=== PATIENT | female | born 1975 | race African-American/Black ===

== ENCOUNTER 2016-11-02 16:50 | Emergency (ER) | payer OTHER ==
[~2016-11-02] VITALS: Ht 165.1 cm; Wt 132.4 kg
--- NOTE | ~2016-11-02 | EKG ---
[place] [address] [facility] [place] [address] ELECTROCARDIOGRAM REPORT Name: GARRETT LARKIN ANABEL Room #: REG [facility]ENTERLyndsayLyndsay#: [id number] Admission: 11/02/16 Attend Phys: Discharge: Date of : 77 Report #: [id number] THIS REPORT FOR: //name// [facility] ED Test Date: 2016-11-02 Test Time: 16:54:23 Pat Name: GARRETT LARKIN Department: Room: Gender: F Financial Auditor: Yayo MENENDEZ : 1975 Requested By: Adan Arechiga Order Number: [id number] MD: Sonido Brown Measurements Intervals [place] Rate: 94 P: 35 OR: 146 QRS: 8 QRSD: 101 T: 14 QT: 373 QTc: 467 Interpretive Statements Sinus rhythm Borderline T wave abnormalities Compared to ECG 08/23/2015 23:12:50 T-wave abnormality now present Sinus tachycardia no longer present ST (T wave) deviation no longer present Electronically Signed On 11-02-2016 19:31:57 CDT by Sonido Brown [email or web address] <ELECTRONICALLY SIGNED> By: Sonido Brown MD 11/02/161930 1654 165 Sonido Brown MD /EPI
[~2016-11-02 16:50] MED LIST: AMLODIPINE BESYL5 M1 PO; AMOXICILLIN 50500 M1 PO; BENTYL10 MG; CIPROFLOXACIN500 M1 PO; CLEOCIN HCL300 MG PO; DIFLUCAN150 MG PO; DILAUDID 4 MG TA4 M1 PO; DILAUDID2 M1 PO; DOXYCYCLINE 10100 MG PO; FLAGYL500 MG PO; FOLIC ACID 1 MG1 MG PO; HYCET 7.5 MG-3473 ML PO; KEFLEX500 MG PO; LEXAPRO 10 MG T10 M2 PO; MULTIVITAMINS1 EAC7 PO; NORCO 5-325 TA1 EACH PO; NORVASC 2.5 MG2.5 M1 PO; ONDANSETRON HCL4 M2 PO; OXYCONTIN CR 2020 MG; PENICILLIN V P500 MG PO; PERCOCET 10-321 EACH; PREVACID 24HR15 MG; PROMETHAZINE12.5 M1 PO; PROZAC 20 MG20 MG PO; RANITIDINE 150150 M1 PO; TESSALON200 MG PO; ULTRACET TABLE1 EACH PO; XANAX 0.5 MG0.5 M1; ZANTAC 150MG T150 M1; ZANTAC 150MG T150 MG PO; ZOFRAN ODT4 MG PO; ZOFRAN4 MG PO
[2016-11-02 19:04] LABS: HEMATOCRIT 33.4 % (37.0-47.0); HEMOGLOBIN 11.6 gm/dL (12.0-15.0); MCH 28.8 pg (26.0-34.0); MCHC 34.7 g/dL (28.0-37.0); MCV 83.2 fL (80.0-100.0); RBC 4.02 mil/uL (4.20-5.00); RDW 16.8 % (10.5-14.5)
[2016-11-02 19:05] LABS: MANUAL DIFF YES
[2016-11-02 19:12] LABS: ANION GAP 8 mmol/L (7-16); BUN 10 mg/dL (7-18); CALCIUM 8.8 mg/dL (8.5-10.1); CHLORIDE 103 mmol/L (98-107); CO2 26 mmol/L (21-32); CREATININE 0.8 mg/dL (0.6-1.0); GLUCOSE 109 mg/dL (74-106); POTASSIUM 3.8 mmol/L (3.5-5.1); SODIUM 137 mmol/L (136-145)
[2016-11-02] MEDS ORDERED: LATUDA40 MG PO (19:12)
[2016-11-02] MEDS ORDERED: HYDROCHLOROTH12.5 M1 PO (19:12)
[2016-11-02 19:22] LABS: ALBUMIN 3.8 g/dL (3.4-5.0); ALKALINE PHOSPHATASE 142 U/L (46-116); MAGNESIUM 1.8 mg/dL (1.8-2.4); SGOT 31 U/L (15-37); SGPT 30 U/L (30-65); TOTAL PROTEIN 7.7 g/dL (6.4-8.2); TROPONIN-I < 0.04 ng/mL (<0.04-0.07)
[2016-11-02 19:50] LABS: ABSOLUTE NEUTROPHILS 9.4 thou/uL (1.4-8.2); TOTAL CELL COUNT 100
[2016-11-02 19:51] LABS: ANISOCYTOSIS 1+; TARGET CELLS 2+
[2016-11-02] MEDS ORDERED: PROAIR HFA8.5 GM INH (20:08)
[2016-11-02] MEDS ORDERED: TESSALON PERLE100 MG PO (20:08)
[2016-11-02] MEDS ORDERED: NORCO 5-325 TA1 EACH PO (20:08)
[2016-11-02 20:09] LABS: ABSOLUTE RETIC COUNT 0.1342 10^6/uL; OBSERVED RETIC COUNT 3.4 % (0.6-2.6)
[2016-11-02 20:37] VITALS: BP 144/85
[2016-11-02 20:48] LABS: PLATELET COUNT 302 thou/uL (150-400); PLATELET ESTIMATE NORMAL
== END 2016-11-02 20:39 | disposition home or self-care (01) ==
LOC: ER 16:50
PROVIDERS: Emergency Medicine
DX: J20.8 Acute bronchitis due to other specified organisms (principal); D57.00 Hb-SS disease with crisis, unspecified; I10 Essential (primary) hypertension; F17.210 Nicotine dependence, cigarettes, uncomplicated; Z90.89 Acquired absence of other organs; Z88.6 Allergy status to analgesic agent; Z88.8 Allergy status to other drugs, medicaments and biological substances

== ENCOUNTER 2016-12-11 13:47 | Emergency (ER) | payer OTHER ==
[~2016-12-11] VITALS: Ht 165.1 cm; Wt 131.5 kg
--- NOTE | ~2016-12-11 | EKG ---
[place] [address] [facility] [place] [address] ELECTROCARDIOGRAM REPORT Name: GARRETT LARKIN Room #: DEP [facility]#: [id number] Admission: 12/11/16 Attend Phys: Discharge: 12/11/16 Date of : 77 Report #: [id number] THIS REPORT FOR: //name// [facility] ED Test Date: 2016-12-11 Test Time: 13:52:43 Pat Name: GARRETT LARKIN Department: Room: Gender: F Mold Dumper: Gavin MONTERROSO : 1975 Requested By: Carmela Pressley Order Number: [id number] MD: Sonido Brown Measurements Intervals [place] Rate: 84 P: 31 [place]: 150 QRS: 15 QRSD: 104 T: 2 QT: 384 QTc: 454 Interpretive Statements Sinus rhythm Borderline T wave abnormalities Compared to ECG 11/02/2016 16:54:23 No significant changes Electronically Signed On 12-11-2016 22:03:40 CDT by Sonido Brown [email or web address] <ELECTRONICALLY SIGNED> By: Sonido Brown MD 12/11/16 2203 1352 1352 Sonido Brown MD /SYDNI
[~2016-12-11 13:47] MED LIST changes: +HYDROCHLOROTH12.5 M1 PO; +LATUDA40 MG PO; +PROAIR HFA8.5 GM INH; +TESSALON PERLE100 MG PO
[2016-12-11 14:45] VITALS: BP 136/84
[2016-12-11 14:54] LABS: ABSOLUTE NEUTROPHILS 7.6 thou/uL (1.4-8.2); BASOPHILS 0.3 % (0.0-2.0); EOSINOPHILS 1.8 % (0.0-3.0); HEMATOCRIT 31.7 % (37.0-47.0); HEMOGLOBIN 11.4 gm/dL (12.0-15.0); LYMPHOCYTES 25.9 % (24.0-44.0); MANUAL DIFF NO; MCH 29.5 pg (26.0-34.0); MCHC 35.9 g/dL (28.0-37.0); MCV 82.2 fL (80.0-100.0); PLATELET COUNT 359 thou/uL (150-400); RBC 3.85 mil/uL (4.20-5.00); RDW 17.2 % (10.5-14.5); WBC 12.1 thou/uL (4.0-11.0)
[2016-12-11 15:11] LABS: ANION GAP 6 mmol/L (7-16); BUN 5 mg/dL (7-18); CALCIUM 8.9 mg/dL (8.5-10.1); CHLORIDE 107 mmol/L (98-107); CO2 28 mmol/L (21-32); CREATININE 0.7 mg/dL (0.6-1.0); GLUCOSE 96 mg/dL (74-106); POTASSIUM 3.7 mmol/L (3.5-5.1); SODIUM 141 mmol/L (136-145); TROPONIN-I < 0.04 ng/mL (<0.04-0.07)
[2016-12-11] MEDS ORDERED: NORCO 5-325 TA1 EACH PO (15:14)
== END 2016-12-11 15:41 | disposition home or self-care (01) ==
LOC: ER 13:47
PROVIDERS: Emergency Medicine
DX: R07.89 Other chest pain (principal); D57.1 Sickle-cell disease without crisis; I10 Essential (primary) hypertension; Z98.890 Other specified postprocedural states; Z88.8 Allergy status to other drugs, medicaments and biological substances; Z88.6 Allergy status to analgesic agent; F17.210 Nicotine dependence, cigarettes, uncomplicated; F15.10 Other stimulant abuse, uncomplicated

== ENCOUNTER 2016-12-19 06:28 | Emergency (ER) | payer OTHER ==
[~2016-12-19] VITALS: Ht 165.1 cm; Wt 131.5 kg
[2016-12-19 06:34] VITALS: BP 134/92
[2016-12-19] MEDS ORDERED: HYDROCODONE-ACE15 ML PO (07:03)
== END 2016-12-19 07:03 | disposition home or self-care (01) ==
LOC: ER 06:28
DX: J02.8 Acute pharyngitis due to other specified organisms (principal); H92.02 Otalgia, left ear; I10 Essential (primary) hypertension; D57.1 Sickle-cell disease without crisis; F17.210 Nicotine dependence, cigarettes, uncomplicated; F15.10 Other stimulant abuse, uncomplicated; Z98.890 Other specified postprocedural states; Z88.6 Allergy status to analgesic agent

== ENCOUNTER 2017-04-07 21:38 | Emergency (ER) | payer OTHER ==
[~2017-04-07] VITALS: Ht 165.1 cm; Wt 131.5 kg
--- NOTE | ~2017-04-07 | EKG ---
[place] [address] [place] [address] ELECTROCARDIOGRAM REPORT Name: GARRETT LARKIN ANABEL Room #: REG [facility]Lyn[facility]ay#: [id number] Admission: 04/07/17 Attend Phys: Discharge: Date of : 77 Report #: [id number] THIS REPORT FOR: //name// [facility] ED Test Date: 2017-04-07 Test Time: 22:54:38 Pat Name: GARRETT LARKIN Department: Room: Gender: F Panel Laminator: NE[place] : 1975 Requested By: Gage Bach Order Number: [id number] MD: Sonido Brown Measurements Intervals [place] Rate: 74 P: 31 [place]: 152 QRS: 13 QRSD: 99 T: 11 QT: 398 QTc: 442 Interpretive Statements Sinus rhythm RSR' in V1 or V2, probably normal variant Compared to ECG 12/11/2016 13:52:43 RSR' in V1 or V2 now present T-wave abnormality no longer present Electronically Signed On 04-07-2017 23:35:24 CDT by Sonido Brown [email or web address] <ELECTRONICALLY SIGNED> By: Sonido Brown MD 04/07/17 2335 2254 2254 Sonido Brown MD /EPI
[~2017-04-07 21:38] MED LIST changes: +HYDROCODONE-ACE15 ML PO
[2017-04-07 22:21] LABS: ABSOLUTE NEUTROPHILS 9.5 thou/uL (1.4-8.2); BASOPHILS 0.8 % (0.0-2.0); EOSINOPHILS 1.1 % (0.0-3.0); HEMATOCRIT 33.7 % (37.0-47.0); HEMOGLOBIN 11.9 gm/dL (12.0-15.0); LYMPHOCYTES 27.1 % (24.0-44.0); MCH 28.9 pg (26.0-34.0); MCHC 35.3 g/dL (28.0-37.0); MCV 81.9 fL (80.0-100.0); MONOCYTES 8.4 % (1.0-8.0); PLATELET COUNT 365 thou/uL (150-400); POLYS 62.6 % (36.0-66.0); RBC 4.12 mil/uL (4.20-5.00); RDW 17.4 % (10.5-14.5); WBC 15.2 thou/uL (4.0-11.0)
[2017-04-07 22:22] LABS: URINE BILIRUBIN NEGATIVE (Negative); URINE BLOOD TRACE (Negative); URINE COLOR YELLOW; URINE GLUCOSE-RANDOM* NEGATIVE (Negative); URINE KETONES NEGATIVE (Negative); URINE LEUKOCYTES-REFLEX NEGATIVE (Negative); URINE PROTEIN (DIPSTICK) NEGATIVE (Negative); URINE UROBILINOGEN 0.2 E.U./dl (0.2-1.0)
[2017-04-07 22:25] LABS: ANION GAP 7 mmol/L (7-16); BUN 8 mg/dL (7-18); CALCIUM 9.1 mg/dL (8.5-10.1); CHLORIDE 105 mmol/L (98-107); CO2 24 mmol/L (21-32); CREATININE 0.8 mg/dL (0.6-1.0); GLUCOSE 111 mg/dL (74-106); MANUAL DIFF NO; POTASSIUM 4.4 mmol/L (3.5-5.1); SODIUM 136 mmol/L (136-145)
[2017-04-07 22:33] LABS: ALKALINE PHOSPHATASE 147 U/L (46-116); SGOT 25 U/L (15-37); SGPT 23 U/L (30-65); TOTAL BILIRUBIN 1.3 mg/dL (<0.1-1.0); TOTAL PROTEIN 7.9 g/dL (6.4-8.2); TROPONIN-I < 0.04 ng/mL (<0.04-0.07)
[2017-04-08 01:47] VITALS: BP 151/100
[2017-04-11 06:11] LABS: HB-F 0.5 % (0.0-2.0); HGB ELECTROPH. COMMENT Note: (()); Hgb A 0 % (94.0-98.0); Hgb C 45.3 % (0.0); Hgb S 49.9 % (0.0)
== END 2017-04-08 01:48 | disposition home or self-care (01) ==
LOC: ER 21:38
PROVIDERS: Emergency Medicine
DX: D57.00 Hb-SS disease with crisis, unspecified (principal); K59.00 Constipation, unspecified; I10 Essential (primary) hypertension

== ENCOUNTER 2017-05-12 10:29 | Emergency (ER) | payer OTHER ==
[~2017-05-12] VITALS: Ht 165.1 cm; Wt 131.5 kg
[2017-05-12] MEDS ORDERED: OXYCODONE HCL15 MG PO (10:40)
[2017-05-12 11:59] VITALS: BP 138/79
== END 2017-05-12 12:10 | disposition home or self-care (01) ==
LOC: ER 10:29
DX: M79.1 Myalgia (principal); G89.29 Other chronic pain; D57.1 Sickle-cell disease without crisis; Z88.6 Allergy status to analgesic agent; I10 Essential (primary) hypertension; R16.0 Hepatomegaly, not elsewhere classified

== ENCOUNTER 2017-09-01 15:39 | Emergency (ER) | payer OTHER ==
[~2017-09-01] VITALS: Ht 154.9 cm; Wt 127.0 kg
--- NOTE | ~2017-09-01 | EKG ---
[place] [address] [facility] [place] [address] ELECTROCARDIOGRAM REPORT Name: GARRETT LARKIN Room #: DEP [facility] [id number] Admission: 09/01/17 Attend Phys: Discharge: 09/01/17 Date of : 77 Report #: [id number] THIS REPORT FOR: //name// [facility] ED Test Date: 2017-09-01 Test Time: 15:54:12 Pat Name: GARRETT LARKIN Department: Room: Gender: F Mortgage Processor: Mackenzie MILLER : 1975 Requested By: David Martin Order Number: [id number] MD: Payam Whitt Measurements Intervals [place] Rate: 77 P: 25 [place]: 151 QRS: 3 QRSD: 107 T: 5 QT: 405 QTc: 459 Interpretive Statements Sinus rhythm Borderline T wave abnormalities Compared to ECG 04/07/2017 22:54:38 T-wave abnormality now present Electronically Signed On 09-02-2017 8:40:39 CAR GROOMER by Payam Whitt [email or web address] <ELECTRONICALLY SIGNED> By: Payam Whitt MD, [facility] 09/02/17 0840 1554 1554 Payam Whitt MD, FACC /EPI
[~2017-09-01 15:39] MED LIST changes: +OXYCODONE HCL15 MG PO
[2017-09-01 16:29] LABS: BASOPHILS 1.4 % (0.0-2.0); EOSINOPHILS 2.1 % (0.0-3.0); HEMATOCRIT 30.7 % (37.0-47.0); HEMOGLOBIN 10.9 gm/dL (12.0-15.0); MCH 29.1 pg (26.0-34.0); MCHC 35.4 g/dL (28.0-37.0); MCV 82.2 fL (80.0-100.0); PLATELET COUNT 320 thou/uL (150-400); POLYS 53.5 % (36.0-66.0); RBC 3.73 mil/uL (4.20-5.00); WBC 11.2 thou/uL (4.0-11.0)
[2017-09-01 16:38] LABS: ANION GAP 4 mmol/L (7-16); BUN 11 mg/dL (7-18); CALCIUM 8.9 mg/dL (8.5-10.1); CHLORIDE 106 mmol/L (98-107); CO2 27 mmol/L (21-32); CREATININE 0.9 mg/dL (0.6-1.0); GLUCOSE 109 mg/dL (74-106); POTASSIUM 4.4 mmol/L (3.5-5.1); SODIUM 137 mmol/L (136-145)
[2017-09-01 16:47] LABS: TROPONIN-I < 0.04 ng/mL (<0.06)
[2017-09-01] MEDS ORDERED: HYDROCODONE-AP1 EAC6 PO (17:50)
[2018-03-10] MEDS ORDERED: PRILOSEC 20 MG20 MG PO (13:02)
[2018-03-10] MEDS ORDERED: PHENERGAN 25 MG25 M1 PO (13:02)
== END 2017-09-01 18:06 | disposition home or self-care (01) ==
LOC: ER 15:39
PROVIDERS: Nurse Practitioner
DX: R07.89 Other chest pain (principal); I10 Essential (primary) hypertension; Z90.49 Acquired absence of other specified parts of digestive tract; Z88.6 Allergy status to analgesic agent

== ENCOUNTER 2018-01-08 16:53 | Emergency (ER) | payer OTHER ==
[~2018-01-08] VITALS: Ht 175.3 cm; Wt 145.2 kg
[~2018-01-08 16:53] MED LIST changes: +HYDROCODONE-AP1 EAC6 PO
[2018-01-08 17:49] LABS: RBC 4.13 mil/uL (4.20-5.00)
[2018-01-08 17:50] LABS: HEMATOCRIT 33.5 % (37.0-47.0); HEMOGLOBIN 12.2 gm/dL (12.0-15.0); MCH 29.6 pg (26.0-34.0); MCHC 36.4 g/dL (28.0-37.0); MCV 81.3 fL (80.0-100.0); PLATELET COUNT 395 thou/uL (150-400); RDW 17.1 % (10.5-14.5); WBC 13.1 thou/uL (4.0-11.0)
[2018-01-08 17:55] LABS: ABSOLUTE RETIC COUNT 0.0774 10^6/uL; CALCIUM 9.4 mg/dL (8.5-10.1); OBSERVED RETIC COUNT 1.91 % (0.6-2.6); POTASSIUM 3.3 mmol/L (3.5-5.1)
[2018-01-08 18:01] LABS: ALBUMIN 3.9 g/dL (3.4-5.0); TOTAL BILIRUBIN 1.1 mg/dL (<0.1-1.0); TOTAL PROTEIN 7.7 g/dL (6.4-8.2)
[2018-01-08 18:19] LABS: ABSOLUTE NEUTROPHILS 7.5 thou/uL (1.4-8.2)
[2018-01-08 18:21] LABS: ANISOCYTOSIS 1+; TARGET CELLS 3+
[2018-01-08 20:14] LABS: URINE BILIRUBIN NEGATIVE (Negative); URINE BLOOD NEGATIVE (Negative); URINE CLARITY SL CLOUDY; URINE COLOR YELLOW; URINE GLUCOSE-RANDOM* NEGATIVE (Negative); URINE KETONES NEGATIVE (Negative); URINE LEUKOCYTES-REFLEX NEGATIVE (Negative); URINE NITRITE-REFLEX NEGATIVE (Negative); URINE PROTEIN (DIPSTICK) NEGATIVE (Negative); URINE UROBILINOGEN 0.2 E.U./dl (0.2-1.0)
[2018-01-08] MEDS ORDERED: OXYCODONE HCL15 MG PO (21:41)
[2018-01-08 22:10] VITALS: BP 136/88
[2018-01-10 16:13] LABS: HGB SOLUBILITY Positive (Negative); Hgb C 45.1 % (0.0); Hgb S 50.5 % (0.0)
== END 2018-01-08 22:11 | disposition home or self-care (01) ==
LOC: ER 16:53
PROVIDERS: Emergency Medicine
DX: D57.00 Hb-SS disease with crisis, unspecified (principal); I10 Essential (primary) hypertension; Z90.49 Acquired absence of other specified parts of digestive tract; Z90.10 Acquired absence of unspecified breast and nipple; Z88.6 Allergy status to analgesic agent

== ENCOUNTER 2018-05-07 02:31 | Emergency (ER) | payer OTHER ==
[~2018-05-07] VITALS: Ht 165.1 cm; Wt 127.0 kg
[~2018-05-07 02:31] MED LIST changes: +PHENERGAN 25 MG25 M1 PO; +PRILOSEC 20 MG20 MG PO
[2018-05-07 02:40] VITALS: BP 147/92
[2018-05-07] MEDS ORDERED: OXYCONTIN20 M1 PO (02:46)
[2018-05-07 03:17] LABS: URINE BILIRUBIN NEGATIVE (Negative); URINE BLOOD NEGATIVE (Negative); URINE CLARITY CLEAR; URINE COLOR YELLOW; URINE GLUCOSE-RANDOM* NEGATIVE (Negative); URINE KETONES NEGATIVE (Negative); URINE LEUKOCYTES-REFLEX NEGATIVE (Negative); URINE NITRITE-REFLEX NEGATIVE (Negative); URINE PROTEIN (DIPSTICK) NEGATIVE (Negative); URINE SPECIFIC GRAVITY 1.015 (1.005-1.035); URINE UROBILINOGEN 0.2 E.U./dl (0.2-1.0)
[2018-05-07 03:20] LABS: HEMOGLOBIN 11.2 gm/dL (12.0-15.0); MCH 29.5 pg (26.0-34.0); MCV 83.4 fL (80.0-100.0); RBC 3.79 mil/uL (4.20-5.00)
[2018-05-07 03:22] LABS: HEMATOCRIT 31.7 % (37.0-47.0); MCHC 35.4 g/dL (28.0-37.0); PLATELET COUNT 402 thou/uL (150-400); RDW 16.6 % (10.5-14.5); WBC 13.9 thou/uL (4.0-11.0)
[2018-05-07 03:24] LABS: CALCIUM 8.7 mg/dL (8.5-10.1); POTASSIUM 4.3 mmol/L (3.5-5.1)
[2018-05-07 03:29] LABS: ALBUMIN 3.7 g/dL (3.4-5.0); DIRECT BILIRUBIN 0.3 mg/dL (<0.1-0.3); TOTAL BILIRUBIN 1.4 mg/dL (<0.1-1.0); TOTAL PROTEIN 7.6 g/dL (6.4-8.2)
[2018-05-07 03:52] LABS: ABSOLUTE NEUTROPHILS 9.3 thou/uL (1.4-8.2); ANISOCYTOSIS 1+; ATYPICAL LYMPHS 1 %; NUCLEATED RBCS 2 /100WBC
[2018-05-07 03:53] LABS: LARGE PLATELETS OCCASIONAL
[2018-05-07 03:54] LABS: SCHISTOCYTES OCCASIONAL; TARGET CELLS 3+; TOXIC GRANULATION 1+
[2018-05-07 03:55] LABS: OVALOCYTES FEW; POIKILOCYTOSIS 3+; TEARDROPS FEW
[2018-05-07] MEDS ORDERED: CARAFATE 1 GM TA1 G1 PO (05:22)
[2018-05-07] MEDS ORDERED: BENTYL 20 MG TA20 M1 PO (05:22)
[2018-05-07 06:00] VITALS: BP 130/80
== END 2018-05-07 06:01 | disposition home or self-care (01) ==
LOC: ER 02:31 → EROBS 04:43 → ER 04:43
PROVIDERS: Emergency Medicine
DX: R10.84 Generalized abdominal pain (principal); F17.210 Nicotine dependence, cigarettes, uncomplicated; I10 Essential (primary) hypertension; Z88.6 Allergy status to analgesic agent; Z88.8 Allergy status to other drugs, medicaments and biological substances; Z90.49 Acquired absence of other specified parts of digestive tract; Z90.10 Acquired absence of unspecified breast and nipple; Z98.890 Other specified postprocedural states

== ENCOUNTER 2018-06-24 13:03 | Inpatient (IN) | payer OTHER ==
[~2018-06-24] VITALS: Ht 165.1 cm; Wt 125.2 kg
[~2018-06-24 13:03] MED LIST changes: +BENTYL 20 MG TA20 M1 PO; +CARAFATE 1 GM TA1 G1 PO; +OXYCODONE HCL20 M1 PO
[2018-06-24 13:06] VITALS: BP 142/85
[2018-06-24 13:39] LABS: ABSOLUTE RETIC COUNT 0.1135 10^6/uL; HEMATOCRIT 30.2 % (37.0-47.0); HEMOGLOBIN 10.5 gm/dL (12.0-15.0); MCH 29.6 pg (26.0-34.0); MCHC 34.8 g/dL (28.0-37.0); MCV 84.8 fL (80.0-100.0); OBSERVED RETIC COUNT 3.19 % (0.6-2.6); RBC 3.56 mil/uL (4.20-5.00); RDW 17.5 % (10.5-14.5); WBC 16.9 thou/uL (4.0-11.0)
[2018-06-24 13:43] LABS: ANION GAP 10 mmol/L (7-16); BUN 11 mg/dL (7-18); CHLORIDE 103 mmol/L (98-107); CO2 25 mmol/L (21-32); CREATININE 0.8 mg/dL (0.6-1.0); GLUCOSE 85 mg/dL (74-106); POTASSIUM 4.2 mmol/L (3.5-5.1); SODIUM 138 mmol/L (136-145)
[2018-06-24 13:53] LABS: ALBUMIN 3.8 g/dL (3.4-5.0); SGOT 22 U/L (15-37); SGPT 23 U/L (30-65); TOTAL BILIRUBIN 1.1 mg/dL (<0.1-1.0); TOTAL PROTEIN 7.6 g/dL (6.4-8.2); TROPONIN-I <0.06 ng/mL (<0.06)
[2018-06-24 13:57] LABS: ABSOLUTE NEUTROPHILS 12.8 thou/uL (1.4-8.2); NUCLEATED RBCS 2 /100WBC
[2018-06-24 13:59] LABS: ANISOCYTOSIS 2+; MACROCYTES 1+; MICROCYTES 1+
[2018-06-24 14:00] LABS: TARGET CELLS FEW
[2018-06-24 14:01] LABS: PLATELET COUNT 360 thou/uL (150-400)
[2018-06-24 14:51] VITALS: BP 148/94
[2018-06-24 15:20] VITALS: BP 142/82
[2018-06-24 16:04] LABS: TSH 0.631 uIU/mL (0.358-3.740)
--- NOTE | 2018-06-24 18:02 | NUR ---
ADM PT CAME IN FROM ER. PT ORIENTED TO ROOM. ADM ORDERS CARRIED OUT. WILL CONTINUE TO MONITOR.
[2018-06-24 18:06] VITALS: BP 123/78
[2018-06-24 19:57] VITALS: BP 135/96
--- NOTE | 2018-06-24 21:45 | NUR ---
PT WAS OBSERVED SITTING UP IN BED WITH A FRIEND IN HER ROOM AT START OF SHIFT.PT C/O PAIN ON HER CHEST(NON CARDIAC) MED ADMINISTERED AT 2123.AT APPROX 2125,THE TELE MONITOR NOTIFIED THE FAITH HEALER THAT THE PT WAS OFF THE MONITOR,ON GETTING TO THE PT'S ROOM, FAITH HEALER NOTICED THAT THE PT WAS NOT IN HER ROOM.EARLIER THIS NURSE EXPLAINED TO THE PT THAT SHE CAN NOT LEAVE THE UNIT WITHOUT A STAFF WHEN SHE STATED THAT SHE WANTED TO SEE HER FRIEND OFF,PT STATED THAT SHE WAS ALLOWED TO GO ANYWHERE SHE WANTED WHEN SHE WENT TO [place].PT WAS NOTIFIED THAT THIS IS OUR POLICY AND IT APPLIES TO ALL OUR PT.PT STILL LEFT WITHOUT SUPERVISION.SECURITY, MEDICAL INSURANCE CODING SPECIALIST ON DUTY AND HIGH RISK OB NOTIFIED.PT CAME BACK TO THE ROOM AT 2152 SMELLING OF CIGARETTE.SHE WAS NOTIFIED A SECOND TIME THAT SHE CAN NOT LEAVE THE UNIT WITHOUT SUPERVISION.PT'S HR WHEN SHE CAME BACK WAS 115.PT'S FRIENDS STILL IN THE ROOM WITH HER.CALL LIGHT WITHIN REACH.
[2018-06-25 05:05] VITALS: BP 134/69
[2018-06-25 06:04] LABS: HEMATOCRIT 29.5 % (37.0-47.0); HEMOGLOBIN 10.5 gm/dL (12.0-15.0); MCHC 35.6 g/dL (28.0-37.0); MCV 84.4 fL (80.0-100.0); RBC 3.5 mil/uL (4.20-5.00); WBC 18.4 thou/uL (4.0-11.0)
[2018-06-25 06:25] LABS: ANION GAP 7 mmol/L (7-16); BUN 8 mg/dL (7-18); CALCIUM 8.8 mg/dL (8.5-10.1); CHLORIDE 104 mmol/L (98-107); CO2 28 mmol/L (21-32); CREATININE 0.7 mg/dL (0.6-1.0); GLUCOSE 105 mg/dL (74-106); MAGNESIUM 1.8 mg/dL (1.8-2.4); POTASSIUM 3.8 mmol/L (3.5-5.1); SODIUM 139 mmol/L (136-145); TROPONIN-I <0.06 ng/mL (<0.06)
[2018-06-25 08:15] VITALS: BP 126/86
--- NOTE | 2018-06-25 08:42 | EKG ---
[address] [address] ELECTROCARDIOGRAM REPORT Name: GARRETT LARKIN Room #: 463-P ADM IN M.R.#: [id number] Admission: 06/24/18 Attend Phys: Mesfin Golden MD Discharge: Date of : 77 Report #: [id number] THIS REPORT FOR: //name// [facility] ED Test Date: 2018-06-24 Test Time: 13:11:18 Pat Name: GARRETT LARKIN Department: Room: [facility] Gender: F Pack Mule Worker: NADINE : 1975 Requested By: Emi Lee Order Number: [id number] MD: Sonido Brown Measurements Intervals [place] Rate: 81 P: 26 [place]: 150 QRS: -3 QRSD: 91 T: 18 QT: 377 QTc: 438 Interpretive Statements Sinus rhythm Compared to ECG 03/10/2018 12:09:23 T-wave abnormality no longer present Electronically Signed On 06-25-2018 8:42:31 ELECTRONIC SYSTEMS TECHNICIAN by Sonido Brown [email or web address] <ELECTRONICALLY SIGNED> By: Sonido Brown MD 06/25/18 0842 10 10 Sonido Brown MD /SYDNI
--- NOTE | 2018-06-25 14:01 | 2DMMODE ---
[facility] [address] [place] [address] 2 D/M-MODE ECHOCARDIOGRAM Name: TRAEGARRETT LITTLE Room #: 463-P ADM IN M.R.#: [id number] Admission: 06/24/18 Attend Phys: Mesfin Golden, Discharge: Date of : 77 Date of Service: 06/25/18 1401 Report #: [id number] THIS REPORT FOR: //name// APPROVED REPORT Study performed: 06/25/2018 10:23:30 EXAM: Comprehensive 2D, Doppler, and color-flow Echocardiogram Patient Location: Echo lab Room #: 463 Status: routine BSA: 2.27 HR: 71 bpm BP: 126/86 mmHg Rhythm: NSR Other Information Study Quality: Adequate Indications Dyspnea Cardiomegaly Hypertension/HDD 2D Dimensions RVDd: 45.29 mm IVSd: 11.36 (7-11mm) LVOT Diam: 28.01 (18-24mm) LVDd: 58.42 mm PWd: 10.97 (7-11mm) Ascending Ao: 29.85 (22-36mm) LVDs: 36.45 (25-40mm) Aortic Root: 29.09 mm IVC: 28.00 mm Volumes Left Atrial Volume (Systole) Single Plane 4CH: 69.70 mL Single Plane 2CH: 67.84 mL LA ESV Index: 34.00 mL/m2 Aortic Valve AoV Peak Bharat.: 1.49 m/s AO Peak Gr.: 8.85 mmHg LVOT Max P.09 mmHg LVOT Max V: 1.01 m/s BISHOP Vmax: 4.19 cm2 Mitral Valve E/A Ratio: 1.[address] [facility] [place] [address] [place] [address] 2 D/M-MODE ECHOCARDIOGRAM Name: GARRETT LARKIN ANABEL Room #: 463-P [facility] IN .R.#: [id number] Admission: 06/24/18 Attend Phys: Mesfin Golden, Discharge: Date of : 77 Date of Service: 06/25/18 1401 Report #: [id number] MV Decel. Time: 183.87 ms MV E Max Bharat.: 1.02 m/s MV A Bharat.: 0.62 m/s MV PHT: 53.32 ms IVRT: 92.27 ms Pulmonary Valve PV Peak Bharat.: 1.02 m/s PV Peak Gr.: 4.15 mmHg Pulmonary Vein P Vein S: 0.56 m/s P Vein A: 0.29 m/s P Vein D: 0.41 m/s P Vein A Dur.: 124.6 msec P Vein S/D Ratio: 1.37 Tricuspid Valve TR Peak Bharat.: 2.49 m/s TR Peak Gr.: 24.77 mmHg PA Pressure: 35.00 mmHg Left Ventricle The left ventricle is normal size. There is normal LV segmental wall motion. There is normal left ventricular wall thickness. The left ventricular systolic function is normal. The left ventricular ejection fraction is within the normal range. LVEF is 55-60%. The left ventricular diastolic function is normal. Right Ventricle The right ventricle is normal size. The right ventricular systolic function is normal. Atria Left atrium is at the upper limits of normal. Right atrium is dilated. Aortic Valve The aortic valve is normal in structure. No aortic regurgitation is present. There is no aortic valvular stenosis. Mitral Valve The mitral valve is normal in structure. Trace mitral regurgitation. No evidence of mitral valve stenosis. Tricuspid Valve The tricuspid valve is normal in structure. There is trace to mild tricuspid regurgitation. Estimated PAP 35 mmHg. There is mild pulmonary hypertension. [address] [address] 2 D/M-MODE ECHOCARDIOGRAM Name: GARRETT LARKIN ANABEL Room #: 463-P [facility] IN [facility]#: [id number] Admission: 06/24/18 Attend Phys: Mesfin Golden, Discharge: Date of : 77 Date of Service: 06/25/18 1401 Report #: [id number] Pulmonic Valve The pulmonary valve is normal in structure. Trace pulmonic regurgitation. Great Vessels The aortic root is normal in size. IVC is dilated and collapses <50% with inspiration. Pericardium There is no pericardial effusion. <Conclusion> The left ventricle is normal size. The left ventricular systolic function is normal. The right ventricle is normal size. Left atrium is at the upper limits of normal. Right atrium is dilated. The aortic valve is normal in structure. Trace mitral regurgitation. There is trace to mild tricuspid regurgitation. Estimated PAP 35 mmHg. <ELECTRONICALLY SIGNED> By: Nima Frye MD 06/25/181400 00 00 Nima Frye MD /INF
[2018-06-25 14:16] LABS: ABSOLUTE RETIC COUNT 0.127 10^6/uL; OBSERVED RETIC COUNT 3.65 % (0.6-2.6)
[2018-06-25] MEDS ORDERED: MIRALAX17 GM PO (15:27)
[2018-06-25] MEDS ORDERED: ZANTAC 150MG T150 MG PO (15:27)
[2018-06-25] MEDS ORDERED: ZYRTEC10 M2 PO (15:27)
[2018-06-25] MEDS ORDERED: FLONASE 0.05%50 MCG NASAL (15:28)
[2018-06-25] MEDS ORDERED: ERGOCALCIF50000 UNIT PO (15:28)
[2018-06-25 15:40] VITALS: BP 157/85
[2018-06-25 16:30] LABS: URINE CLARITY CLEAR; URINE COLOR YELLOW
[2018-06-25 16:31] LABS: URINE BILIRUBIN NEGATIVE (Negative); URINE BLOOD NEGATIVE (Negative); URINE GLUCOSE-RANDOM* NEGATIVE (Negative); URINE KETONES NEGATIVE (Negative); URINE LEUKOCYTES-REFLEX TRACE (Negative); URINE NITRITE-REFLEX NEGATIVE (Negative); URINE PROTEIN (DIPSTICK) NEGATIVE (Negative); URINE UROBILINOGEN 0.2 E.U./dl (0.2-1.0)
[2018-06-26 04:13] VITALS: BP 126/67
[2018-06-26 04:41] LABS: HEMATOCRIT 28.6 % (37.0-47.0); MCH 29.5 pg (26.0-34.0); MCHC 34.9 g/dL (28.0-37.0); MCV 84.8 fL (80.0-100.0); RBC 3.38 mil/uL (4.20-5.00); RDW 16.8 % (10.5-14.5); WBC 21.2 thou/uL (4.0-11.0)
[2018-06-26 04:57] LABS: CALCIUM 8.6 mg/dL (8.5-10.1); CREATININE 0.7 mg/dL (0.6-1.0); MAGNESIUM 1.9 mg/dL (1.8-2.4); POTASSIUM 3.5 mmol/L (3.5-5.1)
--- NOTE | 2018-06-26 07:55 | NUR ---
progress pt tele intact readinf sr, pt reports pain to her chest but also stated she had a bad headahe she rated a 15, order for tylenol obtained and given with some effect, tylenol helping headache slightly and dilaudid iv treating chest pain. pt did not sleep very well did walk around the unit with spouse and friend. discussed poc pt r/v understanding.
[2018-06-26 08:23] VITALS: BP 145/83
--- NOTE | 2018-06-26 10:19 | NUR ---
AAOX4. TALKS ON HER REILLY PHONE CONSTANTLY. STILL REQUIRING DILAUDID IVP FOR SICKLE CELL PAIN. TENUOUS IV IN RIGHT HAND, THE RESULT OF MULTIPLE ATTEMPTS 06/25. DR. HOLLAND ASKED FOR MIDLINE OR PICC. FREQUENT CHECKS; WILL CONTINUE TO MONITOR.
[2018-06-26 19:06] VITALS: BP 134/79
--- NOTE | 2018-06-27 01:24 | NUR ---
Approximately 2100 this Lot Technician was notified by security that pt had left hospital and was outside. Once pt returned to her room she was reminded again by her nurse that she cannot leave the unit. Pt's family member then went down to security cursing profanities at them and calling them names. Kathrine Howell notified of incident and orders received to give pt the option to leave AMA or have IV removed. Discussed these options with pt who agreed to have IV removed. Pt states that she did know the policy, but just left anyways. Pt's direct care RN notified of changes.
[2018-06-27 01:58] VITALS: BP 151/84
[2018-06-27 05:40] LABS: HEMATOCRIT 28.6 % (37.0-47.0); HEMOGLOBIN 9.8 gm/dL (12.0-15.0); MCH 29.3 pg (26.0-34.0); MCHC 34.4 g/dL (28.0-37.0); RBC 3.36 mil/uL (4.20-5.00); RDW 16.8 % (10.5-14.5); WBC 15.6 thou/uL (4.0-11.0)
[2018-06-27 05:43] LABS: CALCIUM 8.9 mg/dL (8.5-10.1); CREATININE 0.7 mg/dL (0.6-1.0); MAGNESIUM 1.9 mg/dL (1.8-2.4); POTASSIUM 3.9 mmol/L (3.5-5.1)
--- NOTE | 2018-06-27 07:36 | NUR ---
progress pt continues to report headache and right flank pain taking 1.75 mg of dilaudid q4hrs, and tylenol q4 for headache. at 2030 or so pt requested to take shower, tele removed and pt left unit to go outside I wasnotified by roofing plant supervisor, who was in to talk to pt, pt very upset feels as if she is being singled out because she is a black women. after roofing plant supervisor spoke to her she pulled out her own iv, and then stated she wasn't going ama, she agreed not to go out again. But then became angry about 5 mg of hydrocodone instead of her home dose of 20 mg of oxycodone. obtained ordered medicated and pt relaxed a little.
[2018-06-27 07:47] VITALS: BP 126/73
[2018-06-27 07:50] LABS: ALBUMIN 3.2 g/dL (3.4-5.0); DIRECT BILIRUBIN 0.3 mg/dL (<0.1-0.3); TOTAL BILIRUBIN 1.1 mg/dL (<0.1-1.0); TOTAL PROTEIN 7.1 g/dL (6.4-8.2)
--- NOTE | 2018-06-27 08:03 | NUR ---
Assess due to high BMI 45.9=extreme class III obesity. Wts stable x 3 mo, overall down about 14 lb x 1.5 yrs. Continue heart healthy diet order, low nutrition risk
[2018-06-27 19:33] VITALS: BP 150/83
--- NOTE | 2018-06-28 02:29 | NUR ---
PT GIVEN ORAL PAIN MEDICINE THROUGHOUT THE NIGHT PT UP AD RUBÉN PT USED CALL LIGHT EFFECTIVELY NO ISSUES OVERNIGHT.
[2018-06-28 05:07] VITALS: BP 136/62
[2018-06-28 07:55] VITALS: BP 138/86
[2018-06-28 10:44] LABS: HEMATOCRIT 30.2 % (37.0-47.0); HEMOGLOBIN 10.3 gm/dL (12.0-15.0); MCH 28.9 pg (26.0-34.0); MCHC 34.2 g/dL (28.0-37.0); MCV 84.4 fL (80.0-100.0); RBC 3.58 mil/uL (4.20-5.00); RDW 17.1 % (10.5-14.5); WBC 13.7 thou/uL (4.0-11.0)
[2018-06-28 11:05] LABS: CALCIUM 8.9 mg/dL (8.5-10.1); CREATININE 0.8 mg/dL (0.6-1.0); MAGNESIUM 2.2 mg/dL (1.8-2.4); POTASSIUM 3.6 mmol/L (3.5-5.1)
[2018-06-28] MEDS ORDERED: KEFLEX500 M1 PO (14:07)
[2018-06-28] MEDS ORDERED: AZITHROMYCIN 2250 MG PO (14:07)
[2018-06-28 14:36] VITALS: BP 138/86
--- NOTE | 2018-06-28 15:24 | NUR ---
ASSUMED CARE AT 0700, SHIFT ASSESSMENT DONE, MEDS GIVEN, VSS. DISCHARGE ORDERS RECEIVED. SCRIPTS GIVEN. PATIENT HAS NO IV ACCESS AT THE TIME OF DISCHARGE. LEFT AT 1445
[2018-06-30 01:05] LABS: ADENOVIRUS Negative (Negative); INFLUENZA A Negative (Negative); INFLUENZA B Negative (Negative); METAPNEUMOVIRUS Negative (Negative); PARAINFLUENZA 1 Negative (Negative); PARAINFLUENZA 2 Negative (Negative); PARAINFLUENZA 3 Negative (Negative); RHINOVIRUS Negative (Negative); RSV A Negative (Negative); RSV B Negative (Negative)
== END 2018-06-28 14:45 | disposition home or self-care (01) | DRG 871 ==
LOC: ER 13:03 → EROBS 14:32 → 4W 14:32
PROVIDERS: Internal Medicine Hematology & Oncology; Physician Assistant; Specialist; ADMIT Internal Medicine
DX: A41.9 Sepsis, unspecified organism (principal); J18.9 Pneumonia, unspecified organism; I10 Essential (primary) hypertension; D57.1 Sickle-cell disease without crisis; F12.90 Cannabis use, unspecified, uncomplicated; F17.210 Nicotine dependence, cigarettes, uncomplicated; G89.4 Chronic pain syndrome; M19.90 Unspecified osteoarthritis, unspecified site; F32.9 Major depressive disorder, single episode, unspecified; K59.00 Constipation, unspecified; Z86.010 Personal history of colon polyps; Z90.49 Acquired absence of other specified parts of digestive tract; Z88.6 Allergy status to analgesic agent; Z88.8 Allergy status to other drugs, medicaments and biological substances
CPT/HCPCS: 10045

== ENCOUNTER 2018-07-23 18:07 | Emergency (ER) | payer OTHER ==
[~2018-07-23] VITALS: Ht 165.1 cm; Wt 125.2 kg
[~2018-07-23 18:07] MED LIST changes: +AZITHROMYCIN 2250 MG PO; +ERGOCALCIF50000 UNIT PO; +FLONASE 0.05%50 MCG NASAL; +KEFLEX500 M1 PO; +MIRALAX17 GM PO; +ZYRTEC10 M2 PO
[2018-07-23 18:10] VITALS: BP 167/99
[2018-07-23] MEDS ORDERED: NORFLEX100 MG PO (18:57)
[2018-07-23] MEDS ORDERED: PREDNISONE 10 M10 MG PO (18:57)
== END 2018-07-23 19:27 | disposition home or self-care (01) ==
LOC: ER 18:07
DX: S39.012A Strain of muscle, fascia and tendon of lower back, initial encounter (principal); S80.01XA Contusion of right knee, initial encounter; F17.210 Nicotine dependence, cigarettes, uncomplicated; I10 Essential (primary) hypertension; Z88.6 Allergy status to analgesic agent; Z88.8 Allergy status to other drugs, medicaments and biological substances; Z90.49 Acquired absence of other specified parts of digestive tract; Z90.10 Acquired absence of unspecified breast and nipple; Z98.890 Other specified postprocedural states; W00.0XXA Fall on same level due to ice and snow, initial encounter; Y92.89 Other specified places as the place of occurrence of the external cause; Y93.89 Activity, other specified; Y99.8 Other external cause status

== ENCOUNTER 2018-08-17 13:11 | Inpatient (IN) | payer OTHER ==
[~2018-08-17] VITALS: Ht 165.1 cm; Wt 134.7 kg
--- NOTE | ~2018-08-17 | HC ---
[facility] [place] [address] CONSULTATION Name: GARRETT LARKIN Room #: 455-P ADM IN M.R.#: [id number] Admission: 08/17/18 ������������������ Attend Phys: Mesfin Golden MD Discharge: ������������������ Date of : 77 Report #: [id number] THIS REPORT FOR: //name// CC: THEA physician/PCP Mesfin Golden DATE OF SERVICE: 08/18/2018 HISTORY OF PRESENT ILLNESS: This patient is seen in consultation for "sickle cell crisis." She was admitted through the Emergency Room yesterday and reports that her earlier headache has improved, but still is having pain in her arms and legs. It is no longer a 10, however. She denies any recent infections. PAST MEDICAL HISTORY: She had been admitted earlier to [facility] and has seen Dr. Fulton in the past. 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 She was instructed to take Hydrea, which she did not pursue nor did she return in followup and has been lost to follow up. PAST MEDICAL HISTORY: Positive for previous cholecystectomy for cholelithiasis. She had prior breast reduction surgery and a . MEDICATIONS: As listed on the MFR. ALLERGIES: SHE STATES THAT SHE IS ALLERGIC TO IBUPROFEN AND NUBAIN. SOCIAL HISTORY: She smokes cigarettes and marijuana. REVIEW OF SYSTEMS: Negative for any sweats, chills, fevers, unintended weight loss or other findings reported in her admitting chief complaint. PHYSICAL EXAMINATION: GENERAL: Shows her to be alert. She is obese. HEENT: Normocephalic. She is not overtly jaundiced. NECK: Supple. CHEST: Clear. CARDIOVASCULAR: Normal S1, S2. ABDOMEN: Obese. EXTREMITIES: No clubbing, cyanosis, edema. NEUROLOGIC: No focal localizing signs. PSYCHIATRIC: Not agitated or confused. SKIN: Shows normal turgor. There is no evidence of bleeding or bruising. ASSESSMENT: Hemoglobin SC disease. Her hemoglobin is stable in the [address] [address] CONSULTATION Name: GARRETT LARKIN ANABEL Room #: 455 ADM IN M.R.#: [id number] Admission: 08/17/18 ������������������ Attend Phys: Mesfin Golden MD Discharge: ������������������ Date of : 77 Report #: [id number], which would be typical for SC disease and she does not have increased retic, so this does not appear to be a serious crisis and appears to be improving with fluids. With her arm and leg pain, hopefully, we could administer alternative nonsteroidals to avoid narcotics, which she would prefer. We will reschedule her and follow up with Dr. Fulton regarding initiation of hydroxyurea therapy, which I have discussed can reduce the severity and frequency of her crises by half. Thanks for notifying us of her hospitalization and allowing us to participate in her care. ��������������������������������������������� ���������������������������������������� By: ��������������������������������������������� 1019 13 MD joseph Jacobson
[~2018-08-17 13:11] MED LIST changes: +NORFLEX100 MG PO; +PREDNISONE 10 M10 MG PO
[2018-08-17 13:12] VITALS: BP 160/85
[2018-08-17 15:48] VITALS: BP 134/89
[2018-08-17 16:02] LABS: URINE BILIRUBIN NEGATIVE (Negative); URINE BLOOD 2+ (Negative); URINE CLARITY CLEAR; URINE COLOR YELLOW; URINE GLUCOSE-RANDOM* NEGATIVE (Negative); URINE KETONES NEGATIVE (Negative); URINE LEUKOCYTES-REFLEX NEGATIVE (Negative); URINE NITRITE-REFLEX NEGATIVE (Negative); URINE PROTEIN (DIPSTICK) NEGATIVE (Negative); URINE SPECIFIC GRAVITY <= 1.005 (1.005-1.035); URINE UROBILINOGEN 0.2 E.U./dl (0.2-1.0)
[2018-08-17 16:05] LABS: ABSOLUTE RETIC COUNT 0.1324 10^6/uL; HEMATOCRIT 32.7 % (37.0-47.0); HEMOGLOBIN 11.6 gm/dL (12.0-15.0); MCH 29.2 pg (26.0-34.0); MCHC 35.5 g/dL (28.0-37.0); MCV 82.2 fL (80.0-100.0); OBSERVED RETIC COUNT 3.33 % (0.6-2.6); RBC 3.98 mil/uL (4.20-5.00); RDW 17.9 % (10.5-14.5); WBC 12.4 thou/uL (4.0-11.0)
[2018-08-17 16:06] LABS: CREATININE 0.7 mg/dL (0.6-1.0); POTASSIUM 3.9 mmol/L (3.5-5.1)
[2018-08-17 16:11] LABS: CASTS None Seen /LPF (None Seen); CRYSTALS None Seen /LPF (None Seen); SQUAMOUS 0-3 Few /LPF (0-3)
[2018-08-17 16:12] LABS: BACTERIA-REFLEX 1-9 Few /HPF (None Seen); URINE RBC 0-2 Rare /HPF (0-2); URINE WBC-REFLEX None Seen /HPF (0-5)
[2018-08-17 16:12] LABS: ALBUMIN 3.9 g/dL (3.4-5.0); TOTAL BILIRUBIN 1.4 mg/dL (<0.1-1.0); TOTAL PROTEIN 7.4 g/dL (6.4-8.2)
[2018-08-17 16:37] VITALS: BP 158/85
[2018-08-17 17:19] VITALS: BP 153/91
--- NOTE | 2018-08-17 18:46 | NUR ---
PT ARRIVED TO ROOM AT 16:50 IN STABLE CONDITION. FRIEND AT BEDSIDE. ADMISSION HISTORY AND ASSESSMENT COMPLETED. A&O,X4. C/O 10/10 PAIN ALL OVER DUE TO POSSIBLE SICKLE CELL CRISIS, PAIN MEDS GIVEN ORDERED. PT IS DROWSY, FALLS ASLEEP, BUT AWAKENS EASILY TO VOICE STIMULI, PT REPORTS IT IS DUE TO HER MEDICINE. [address], NO OXYGEN USE AT HOME. DENIES SOA OR CHEST PAIN. TELEMETRY SHOWS NSR. ACTIVE BOWEL SOUNDS, LAST BM THIS MORNING. SKIN INTACT, TATTOOS AND SCARS NOTED. NO EDEMA. PT FROM HOME. USUALLY WALKS W/O ANY ASSISTANCE, STAND BY ASSIST. PT REPORTS SHE IS ON HER PERIOD AND REQUESTED MAXI PADS. PT IN STABLE CONDITION. STILL C/O OF PAIN, SCHEDULED PAIN MEDS GIVEN ORDERED.
[2018-08-17 19:30] VITALS: BP 128/83
[2018-08-18 03:39] VITALS: BP 129/70
[2018-08-18 09:57] LABS: ABSOLUTE RETIC COUNT 0.1446 10^6/uL; HEMATOCRIT 31.7 % (37.0-47.0); HEMOGLOBIN 11.1 gm/dL (12.0-15.0); MCH 28.9 pg (26.0-34.0); MCHC 35.1 g/dL (28.0-37.0); MCV 82.2 fL (80.0-100.0); OBSERVED RETIC COUNT 3.75 % (0.6-2.6); RBC 3.86 mil/uL (4.20-5.00); WBC 12.9 thou/uL (4.0-11.0)
[2018-08-18 15:12] VITALS: BP 148/93
--- NOTE | 2018-08-18 18:43 | NUR ---
PT ALERT AND ORIENTED TIMES FOUR. VSS, 98%RA, SR ON TELE THIS MORNING. C/O PAIN PAIN PRN MEDICATIONS GIVEN WITH SOME RELEIF. PT UP AB RUBÉN. PT TOLERATES MEDS AND MEALS. FAMILY AT BEDSIDE THIS EVENING. PT SLOWLY PROGRESSING TOWRADS POC GOALS.
[2018-08-18 19:37] VITALS: BP 133/88
--- NOTE | 2018-08-19 04:06 | NUR ---
Pt. rested quietly at short intervals during the night when checked on during frequent rounds. She c/o chronic generalized pain and has been given po pain meds (see emar) with little relief of pain.
[2018-08-19 07:44] VITALS: BP 126/78
[2018-08-19 16:17] VITALS: BP 118/73
--- NOTE | 2018-08-19 16:24 | NUR ---
TOWARDS POC PT A/O X4, VSS, AFERBILE. PAIN MANAGED BY MEDS. NO CONCERNS VOICED. WILL CONTINUE TO MONITOR.
[2018-08-19 19:19] VITALS: BP 142/92
[2018-08-20 03:58] VITALS: BP 123/83
--- NOTE | 2018-08-20 07:00 | NUR ---
Assumed care at 1845. Pt resting in bed. No identified needs at the moment. Will continue to monitor.
[2018-08-20 07:15] VITALS: BP 156/104
[2018-08-20] MEDS ORDERED: OXYCONTIN15 MG PO (10:19)
[2018-08-20] MEDS ORDERED: OXYCODONE HCL 55 MG PO (10:19)
[2018-08-20] MEDS ORDERED: PREDNISONE 10 M10 MG PO (10:20)
[2018-08-20 10:25] VITALS: BP 156/104
--- NOTE | 2018-08-20 10:33 | NUR ---
DIS PT IS FOR DC. IV DC'D. MEDSCRIPTS AND DC[ACKET PROVIDED.
[2018-08-21] MEDS ORDERED: NORFLEX100 MG PO (20:43)
== END 2018-08-20 11:07 | disposition home or self-care (01) | DRG 812 ==
LOC: ER 13:11 → 4W 16:41
PROVIDERS: Emergency Medicine; Internal Medicine Hematology & Oncology; ADMIT Internal Medicine
DX: D57.00 Hb-SS disease with crisis, unspecified (principal); Z68.42 Body mass index [BMI] 45.0-49.9, adult; I10 Essential (primary) hypertension; E66.9 Obesity, unspecified; M76.9 Unspecified enthesopathy, lower limb, excluding foot; G89.29 Other chronic pain; F17.210 Nicotine dependence, cigarettes, uncomplicated; Z98.891 History of uterine scar from previous surgery; Z90.49 Acquired absence of other specified parts of digestive tract; Z79.51 Long term (current) use of inhaled steroids; Z79.899 Other long term (current) drug therapy; Z88.8 Allergy status to other drugs, medicaments and biological substances
CPT/HCPCS: 10045; 10047

== ENCOUNTER 2018-08-21 19:21 | Emergency (ER) | payer OTHER ==
[~2018-08-21] VITALS: Ht 165.1 cm; Wt 125.2 kg
--- NOTE | ~2018-08-21 | EKG ---
[facility] [address] [place] [address] ELECTROCARDIOGRAM REPORT Name: LARKINGARRETT CASH Room #: [facility] M.R.#: [id number] ������������������ Admission: ������������������ Attend Phys: Discharge: ������������������ Date of : 77 Report #: [id number] ����������������������������������������������������������������� [id number] THIS REPORT FOR: //name// [facility] ED Test Date: 2018-08-21 Test Time: 19:33:10 Pat Name: GARRETT LARKIN Department: Room: Gender: F Shipping And Receiving Supervisor: andrea : 1975 Requested By: Gage Bach Order Number: [id number] MD: Measurements Intervals [place] Rate: 106 P: 39 [place]: 147 QRS: -2 QRSD: 93 T: 0 QT: 369 QTc: 490 Interpretive Statements Sinus tachycardia Borderline T wave abnormalities Borderline prolonged QT interval Compared to ECG 06/24/2018 13:11:18 T-wave abnormality now present Sinus rhythm no longer present [email or web address] ��������������������������������������������� ���������������������������������������� By: ��������������������������������������������� 32 32 Collin Polanco MD /EPI
[~2018-08-21 19:21] MED LIST changes: +OXYCODONE HCL 55 MG PO; +OXYCONTIN15 MG PO
[2018-08-21 20:36] LABS: HEMOGLOBIN 11.6 gm/dL (12.0-15.0); MCH 28.9 pg (26.0-34.0); MCHC 35.1 g/dL (28.0-37.0); MCV 82.3 fL (80.0-100.0); PLATELET COUNT 393 thou/uL (150-400); RBC 4.01 mil/uL (4.20-5.00); RDW 18.3 % (10.5-14.5); WBC 14.8 thou/uL (4.0-11.0)
[2018-08-21] MEDS ORDERED: NORFLEX100 MG PO (20:43)
[2018-08-21 20:44] LABS: ANION GAP 9 mmol/L (7-16); BUN 15 mg/dL (7-18); CHLORIDE 102 mmol/L (98-107); CO2 29 mmol/L (21-32); GLUCOSE 102 mg/dL (74-106); POTASSIUM 3.8 mmol/L (3.5-5.1); SODIUM 140 mmol/L (136-145)
[2018-08-21 20:53] LABS: SGOT 29 U/L (15-37); SGPT 32 U/L (30-65); TOTAL BILIRUBIN 1.5 mg/dL (<0.1-1.0); TOTAL PROTEIN 7.9 g/dL (6.4-8.2); TROPONIN-I <0.06 ng/mL (<0.06)
[2018-08-21 20:55] VITALS: BP 155/108
[2018-08-21 20:57] LABS: ABSOLUTE NEUTROPHILS 8.9 thou/uL (1.4-8.2); ANISOCYTOSIS 2+; NUCLEATED RBCS 4 /100WBC
[2018-08-21 20:58] LABS: LARGE PLATELETS OCCASIONAL; TARGET CELLS 1+
== END 2018-08-21 20:56 | disposition home or self-care (01) ==
LOC: ER 19:21
PROVIDERS: Emergency Medicine
DX: M43.5X Other recurrent vertebral dislocation (principal); D57.00 Hb-SS disease with crisis, unspecified; Z87.01 Personal history of pneumonia (recurrent); I10 Essential (primary) hypertension; Z90.49 Acquired absence of other specified parts of digestive tract; Z98.890 Other specified postprocedural states; F17.210 Nicotine dependence, cigarettes, uncomplicated; Z88.6 Allergy status to analgesic agent; Z88.8 Allergy status to other drugs, medicaments and biological substances

== ENCOUNTER 2018-10-31 18:37 | Inpatient (IN) | payer OTHER ==
[~2018-10-31] VITALS: Ht 165.1 cm; Wt 122.5 kg
[~2018-10-31 18:37] MED LIST changes: -HYDROCHLOROTH12.5 M1 PO; +HYDROCHLOROTHIA25 M2 PO
[2018-10-31 18:38] VITALS: BP 142/94
--- NOTE | 2018-10-31 20:27 | NUR ---
PT IS IN WAITING ROOM YELLING AND CUSSING AT ME CAUSE SHE HAS BEEN IN THE WAITING ROOM FOR 2 HOURS AND SHE HAS NEVER HAD TO WAIT TWO HOURS BEFORE AND SHE WAS UPSET THAT A PATIENT THAT CAME IN AFTER HER WENT BACK FIRST. I TRIED TO EXPLAIN TO HER THAT THE ER IS NOT FIRST COME FIRST SERVE AND THAT PATIENTS THAT ARE MORE CRITICAL WILL BE SEEN FIRST. SHE GOT VERY ANGRY WITH ME CAUSE SHE SAID I DO NOT KNOW WHO IS MORE CRITICAL HER OR THE OTHER PATIENT I EXPLAINED THAT I AM NOT THE ONE THAT MAKES THAT DECISION. I WAS IN ONE OF THE TRIAGE ROOMS WITH A PATIENT GETTING THERE VITALS WHEN SHE WALKED IN STARTED YELLING AT ME SOME MORE, I EXPLAINED TO HER THAT I WAS IN WITH A PATIENT AND THAT SHE NEEDED TO STEP OUT OF THE ROOM DUE TO PATIENT CONFIDENTIALITY AND SHE SAID SHE DID NOT CARE AND PROCEEDED TO CUSS AT ME. I CALLED SECURITY AND I LET THE CHARGE NURSE (THUY) KNOW AND SHE CAME OUT AND TALKED WITH HER. KNOW
[2018-10-31 21:05] LABS: ABSOLUTE RETIC COUNT 0.1289 10^6/uL; HEMATOCRIT 33.8 % (37.0-47.0); HEMOGLOBIN 11.9 gm/dL (12.0-15.0); MCH 29.9 pg (26.0-34.0); MCHC 35.2 g/dL (28.0-37.0); MCV 84.8 fL (80.0-100.0); OBSERVED RETIC COUNT 3.24 % (0.6-2.6); PLATELET COUNT 390 thou/uL (150-400); RBC 3.98 mil/uL (4.20-5.00); RDW 17.4 % (10.5-14.5); WBC 15.3 thou/uL (4.0-11.0)
[2018-10-31 21:09] LABS: CALCIUM 8.9 mg/dL (8.5-10.1); CREATININE 0.9 mg/dL (0.6-1.0); POTASSIUM 3.2 mmol/L (3.5-5.1)
[2018-10-31 21:15] LABS: ALBUMIN 3.7 g/dL (3.4-5.0); TOTAL BILIRUBIN 1.1 mg/dL (<0.1-1.0); TOTAL PROTEIN 7.3 g/dL (6.4-8.2)
[2018-10-31 21:58] LABS: ABSOLUTE NEUTROPHILS 10.1 thou/uL (1.4-8.2)
[2018-10-31 22:00] LABS: ANISOCYTOSIS 1+; LARGE PLATELETS FEW; PLATELET ESTIMATE NORMAL; POLYCHROMASIA 1+; TARGET CELLS 2+
[2018-10-31] MEDS ORDERED: MACROBID 100 M100 M2 PO (22:52)
[2018-10-31 23:13] LABS: URINE BILIRUBIN NEGATIVE (Negative); URINE BLOOD NEGATIVE (Negative); URINE CLARITY CLEAR; URINE COLOR YELLOW; URINE GLUCOSE-RANDOM* NEGATIVE (Negative); URINE KETONES NEGATIVE (Negative); URINE LEUKOCYTES-REFLEX NEGATIVE (Negative); URINE NITRITE-REFLEX NEGATIVE (Negative); URINE PROTEIN (DIPSTICK) NEGATIVE (Negative); URINE UROBILINOGEN 0.2 E.U./dl (0.2-1.0)
[2018-10-31 23:40] VITALS: BP 141/88
[2018-10-31 23:56] VITALS: BP 152/92
[2018-11-01 00:11] VITALS: BP 142/75
--- NOTE | 2018-11-01 02:03 | NUR ---
PT ARRIVED TO THE UNIT AT AROUND 0015 HRS. PT ALERT AND ORIENTED.C/O GENERALISED PAIN, ALSO WITH SOME ITCHING. DENIES NAUSEA OR VOMITING. AFEBRILE. SO FAR UP AD RUBÉN. PT FELL RECENTLY BUT SHE SAYS SHE WAS ON A SWING AND IT BROKE. PT THEREFORE GIVEN FALL EDUCATION. SHE IS STABLE WALKING. WILL CONTINUE TO MONITOR AND PROVIDE CARE ACCORDING TO THE POC.
[2018-11-01] MEDS ORDERED: HYDREA500 MG PO (03:54)
[2018-11-01] MEDS ORDERED: OXYCODONE HCL10 MG PO (04:21)
[2018-11-01 04:50] VITALS: BP 152/91
[2018-11-01 08:28] VITALS: BP 136/89
--- NOTE | 2018-11-01 11:25 | NUR ---
ASSESMENT COMPLETED. VSS. A/O. PAIN MANAGED BY MEDS ORDERED- SEE MAR. NO NV. NO SOA. UP AD RUBÉN. PT RESTING IN BED APPEARS COMFORETABLE AT THIS TIME. WILL CONT. TO MONITOR.
[2018-11-01 16:30] VITALS: BP 179/85
[2018-11-01 20:30] VITALS: BP 179/66
--- NOTE | 2018-11-02 03:10 | NUR ---
Assumed care of pt at 1900. Alert and oriented x4. IVF infusing. Pain controlled with prn pain meds. Pt c/o pain in the right arm where old IV used to be. In the am US Venous right arm was performed and DVT was ruled out. Call light within reach. Will continue to monitor.
[2018-11-02 04:26] LABS: HEMATOCRIT 32.5 % (37.0-47.0); HEMOGLOBIN 11.5 gm/dL (12.0-15.0); MCH 30.3 pg (26.0-34.0); MCHC 35.3 g/dL (28.0-37.0); RBC 3.78 mil/uL (4.20-5.00); RDW 16.9 % (10.5-14.5); WBC 12.2 thou/uL (4.0-11.0)
[2018-11-02 04:31] LABS: PLATELET COUNT 261 thou/uL (150-400)
[2018-11-02 04:51] LABS: CALCIUM 8.8 mg/dL (8.5-10.1); CREATININE 0.9 mg/dL (0.6-1.0); POTASSIUM 4.7 mmol/L (3.5-5.1)
[2018-11-02 05:47] VITALS: BP 148/78
[2018-11-02 05:56] LABS: ABSOLUTE NEUTROPHILS 6.5 thou/uL (1.4-8.2)
[2018-11-02 05:57] LABS: ANISOCYTOSIS 1+; PLATELET ESTIMATE NORMAL; POLYCHROMASIA 1+; TARGET CELLS 2+
[2018-11-02 07:38] VITALS: BP 153/90
[2018-11-02 15:26] VITALS: BP 142/86
--- NOTE | 2018-11-02 18:32 | NUR ---
NO CHANGE SINCE AM ASSESMENT. PAIN MANAGED BY MEDS ORDERED. NO SOA. NO NV. UP AD RUBÉN. PT RESTING IN BED APPEARS COMFORTABLE. WILL CONT. TO MONITOR.
[2018-11-02 19:20] VITALS: BP 152/89
[2018-11-03 05:28] VITALS: BP 134/69
[2018-11-03 05:55] LABS: CALCIUM 8.6 mg/dL (8.5-10.1); CREATININE 0.6 mg/dL (0.6-1.0); POTASSIUM 4.3 mmol/L (3.5-5.1)
[2018-11-03 05:58] LABS: ABSOLUTE NEUTROPHILS 7.2 thou/uL (1.4-8.2); BASOPHILS 1.2 % (0.0-2.0); EOSINOPHILS 3.1 % (0.0-3.0); HEMATOCRIT 32.5 % (37.0-47.0); HEMOGLOBIN 11.5 gm/dL (12.0-15.0); LYMPHOCYTES 29.4 % (24.0-44.0); MCHC 35.5 g/dL (28.0-37.0); MCV 84.7 fL (80.0-100.0); MONOCYTES 10.1 % (1.0-8.0); OBSERVED RETIC COUNT 2.71 % (0.6-2.6); POLYS 56.2 % (36.0-66.0); RBC 3.83 mil/uL (4.20-5.00); RDW 16.7 % (10.5-14.5); WBC 12.8 thou/uL (4.0-11.0)
[2018-11-03 06:09] LABS: PLATELET COUNT 348 thou/uL (150-400)
[2018-11-03 08:25] VITALS: BP 127/89
--- NOTE | 2018-11-03 10:14 | NUR ---
ASSESMENT COMPLETED. VSS. A/O. PAIN MANAGED BY MEDS ORDERED. NO NOTED SOA. NO NV. PT RESTING IN BED APPEARS COMFORTABLE. ANTICIPATING DC TODAY. WILL CONT. TO MONITOR.
[2018-11-03] MEDS ORDERED: OXYCODONE HCL10 MG PO (11:46)
[2018-11-03 12:03] VITALS: BP 127/89
== END 2018-11-03 12:48 | disposition home or self-care (01) | DRG 812 ==
LOC: ER 18:37 → 4E 23:12 → EROBS 23:12 → 4E 11-01 00:05
PROVIDERS: Physician Assistant; ADMIT Family Medicine
DX: D57.00 Hb-SS disease with crisis, unspecified (principal); F11.20 Opioid dependence, uncomplicated; Z68.41 Body mass index [BMI] 40.0-44.9, adult; E87.6 Hypokalemia; I10 Essential (primary) hypertension; G89.4 Chronic pain syndrome; E66.01 Morbid (severe) obesity due to excess calories; Z98.891 History of uterine scar from previous surgery; Z90.49 Acquired absence of other specified parts of digestive tract; Z79.899 Other long term (current) drug therapy; Z88.6 Allergy status to analgesic agent; Z88.8 Allergy status to other drugs, medicaments and biological substances; Z87.891 Personal history of nicotine dependence
CPT/HCPCS: 10084

== ENCOUNTER 2019-03-09 16:19 | Emergency (ER) | payer OTHER ==
[~2019-03-09] VITALS: Ht 165.1 cm; Wt 122.0 kg
[~2019-03-09 16:19] MED LIST changes: +HYDREA500 MG PO; +MACROBID 100 M100 M2 PO; +OXYCODONE HCL10 MG PO
[2019-03-09 16:40] LABS: URINE BILIRUBIN NEGATIVE (Negative); URINE BLOOD 3+ (Negative); URINE CLARITY CLEAR; URINE COLOR YELLOW; URINE GLUCOSE-RANDOM* NEGATIVE (Negative); URINE KETONES NEGATIVE (Negative); URINE LEUKOCYTES-REFLEX NEGATIVE (Negative); URINE NITRITE-REFLEX NEGATIVE (Negative); URINE PROTEIN (DIPSTICK) NEGATIVE (Negative); URINE UROBILINOGEN 0.2 E.U./dl (0.2-1.0)
[2019-03-09 16:57] LABS: CASTS None Seen /LPF (None Seen); CRYSTALS None Seen /LPF (None Seen); SQUAMOUS 0-3 Few /LPF (0-3)
[2019-03-09 16:58] LABS: BACTERIA-REFLEX 1-9 Few /HPF (None Seen); URINE WBC-REFLEX None Seen /HPF (0-5)
[2019-03-09 17:18] LABS: ABSOLUTE NEUTROPHILS 8.9 thou/uL (1.4-8.2); BASOPHILS 1.2 % (0.0-2.0); EOSINOPHILS 1.5 % (0.0-3.0); HEMATOCRIT 32.4 % (37.0-47.0); HEMOGLOBIN 11.3 gm/dL (12.0-15.0); LYMPHOCYTES 25.2 % (24.0-44.0); MCH 29.9 pg (26.0-34.0); MCHC 34.8 g/dL (28.0-37.0); MONOCYTES 8.4 % (1.0-8.0); PLATELET COUNT 386 thou/uL (150-400); POLYS 63.7 % (36.0-66.0); RBC 3.76 mil/uL (4.20-5.00); RDW 15.8 % (10.5-14.5)
[2019-03-09 17:38] LABS: CALCIUM 9.3 mg/dL (8.5-10.1); CREATININE 0.8 mg/dL (0.6-1.0); POTASSIUM 3.6 mmol/L (3.5-5.1)
[2019-03-09 17:42] LABS: ALBUMIN 3.9 g/dL (3.4-5.0); TOTAL PROTEIN 7.6 g/dL (6.4-8.2)
[2019-03-09] MEDS ORDERED: TRAMADOL 50 MG50 MG PO (19:08)
[2019-03-09] MEDS ORDERED: NAPROSYN500 MG PO (19:08)
[2019-03-09 19:20] VITALS: BP 138/86
== END 2019-03-09 19:39 | disposition home or self-care (01) ==
LOC: ER 16:19
PROVIDERS: Emergency Medicine
DX: N93.9 Abnormal uterine and vaginal bleeding, unspecified (principal); R16.0 Hepatomegaly, not elsewhere classified; I10 Essential (primary) hypertension; D57.1 Sickle-cell disease without crisis; F17.210 Nicotine dependence, cigarettes, uncomplicated; Z90.49 Acquired absence of other specified parts of digestive tract; Z98.890 Other specified postprocedural states; Z88.6 Allergy status to analgesic agent; Z88.8 Allergy status to other drugs, medicaments and biological substances

== ENCOUNTER 2019-04-02 05:18 | Emergency (ER) | payer OTHER ==
[~2019-04-02] VITALS: Ht 165.1 cm; Wt 126.1 kg
[~2019-04-02 05:18] MED LIST changes: +NAPROSYN500 MG PO; +TRAMADOL 50 MG50 MG PO
[2019-04-02 06:32] LABS: ABSOLUTE RETIC COUNT 0.1203 10^6/uL; BASOPHILS 0.9 % (0.0-2.0); EOSINOPHILS 1.4 % (0.0-3.0); HEMATOCRIT 35.7 % (37.0-47.0); HEMOGLOBIN 12.2 gm/dL (12.0-15.0); LYMPHOCYTES 24.1 % (24.0-44.0); MCH 29.7 pg (26.0-34.0); MCHC 34.2 g/dL (28.0-37.0); MCV 87.1 fL (80.0-100.0); MONOCYTES 9.5 % (1.0-8.0); OBSERVED RETIC COUNT 2.93 % (0.6-2.6); PLATELET COUNT 350 thou/uL (150-400); POLYS 64.1 % (36.0-66.0); RDW 16.4 % (10.5-14.5); WBC 10.9 thou/uL (4.0-11.0)
[2019-04-02] MEDS ORDERED: OXYCONTIN40 MG PO (07:48)
[2019-04-02] MEDS ORDERED: OXYCONTIN20 M1 PO (07:50)
[2019-04-02 08:39] VITALS: BP 139/94
== END 2019-04-02 08:54 | disposition home or self-care (01) ==
LOC: ER 05:18
PROVIDERS: Emergency Medicine
DX: D57.00 Hb-SS disease with crisis, unspecified (principal); I10 Essential (primary) hypertension; J44.9 Chronic obstructive pulmonary disease, unspecified; F17.210 Nicotine dependence, cigarettes, uncomplicated; Z98.890 Other specified postprocedural states; Z88.6 Allergy status to analgesic agent

== ENCOUNTER 2019-04-20 20:59 | Emergency (ER) | payer OTHER ==
[~2019-04-20] VITALS: Ht 165.1 cm; Wt 125.2 kg
[~2019-04-20 20:59] MED LIST changes: +OXYCONTIN20 M1 PO; +OXYCONTIN40 MG PO
[2019-04-21 00:32] LABS: ABSOLUTE NEUTROPHILS 7.2 thou/uL (1.4-8.2); BASOPHILS 0.8 % (0.0-2.0); EOSINOPHILS 2.5 % (0.0-3.0); HEMATOCRIT 32.1 % (37.0-47.0); HEMOGLOBIN 11.2 gm/dL (12.0-15.0); LYMPHOCYTES 34.6 % (24.0-44.0); MCHC 34.9 g/dL (28.0-37.0); MCV 85.7 fL (80.0-100.0); MONOCYTES 8.5 % (1.0-8.0); PLATELET COUNT 368 thou/uL (150-400); POLYS 53.6 % (36.0-66.0); RBC 3.75 mil/uL (4.20-5.00); RDW 16.5 % (10.5-14.5); WBC 13.5 thou/uL (4.0-11.0)
[2019-04-21 00:34] LABS: ABSOLUTE RETIC COUNT 0.1121 10^6/uL; OBSERVED RETIC COUNT 3.05 % (0.6-2.6)
[2019-04-21 00:52] LABS: CALCIUM 8.8 mg/dL (8.5-10.1); CREATININE 0.9 mg/dL (0.6-1.0); POTASSIUM 4.2 mmol/L (3.5-5.1)
[2019-04-21 00:58] LABS: ALBUMIN 3.6 g/dL (3.4-5.0); TOTAL BILIRUBIN 1.2 mg/dL (<0.1-1.0); TOTAL PROTEIN 7.1 g/dL (6.4-8.2)
[2019-04-21 02:42] VITALS: BP 131/83
== END 2019-04-21 02:45 | disposition home or self-care (01) ==
LOC: ER 20:59
PROVIDERS: Emergency Medicine
DX: D57.00 Hb-SS disease with crisis, unspecified (principal); I10 Essential (primary) hypertension; F17.210 Nicotine dependence, cigarettes, uncomplicated; Z90.49 Acquired absence of other specified parts of digestive tract; Z98.890 Other specified postprocedural states; Z88.6 Allergy status to analgesic agent

== ENCOUNTER 2019-06-10 15:34 | Emergency (ER) | payer OTHER ==
[~2019-06-10] VITALS: Ht 165.1 cm; Wt 122.0 kg
[2019-06-10 16:25] LABS: ABSOLUTE NEUTROPHILS 8.6 thou/uL (1.4-8.2); EOSINOPHILS 0.6 % (0.0-3.0); HEMOGLOBIN 11.6 gm/dL (12.0-15.0); LYMPHOCYTES 28.2 % (24.0-44.0); MCH 29.7 pg (26.0-34.0); MCHC 35.1 g/dL (28.0-37.0); MCV 84.8 fL (80.0-100.0); MONOCYTES 8.6 % (1.0-8.0); PLATELET COUNT 383 thou/uL (150-400); POLYS 61.6 % (36.0-66.0); RBC 3.89 mil/uL (4.20-5.00); RDW 15.6 % (10.5-14.5); WBC 13.9 thou/uL (4.0-11.0)
[2019-06-10 16:33] LABS: ANION GAP 13 mmol/L (7-16); BUN 8 mg/dL (7-18); CALCIUM 9.4 mg/dL (8.5-10.1); CHLORIDE 106 mmol/L (98-107); CO2 24 mmol/L (21-32); CREATININE 0.8 mg/dL (0.6-1.0); GLUCOSE 93 mg/dL (74-106); POTASSIUM 3.6 mmol/L (3.5-5.1); SODIUM 143 mmol/L (136-145)
[2019-06-10 16:41] LABS: ALBUMIN 3.7 g/dL (3.4-5.0); SGOT 13 U/L (15-37); SGPT 25 U/L (30-65); TOTAL BILIRUBIN 0.9 mg/dL (<0.1-1.0); TOTAL PROTEIN 7.7 g/dL (6.4-8.2); TROPONIN-I <0.06 ng/mL (<0.06)
[2019-06-10 17:24] LABS: ABSOLUTE RETIC COUNT 0.0785 10^6/uL; OBSERVED RETIC COUNT 2.02 % (0.6-2.6)
[2019-06-10 18:37] LABS: URINE BILIRUBIN NEGATIVE (Negative); URINE BLOOD 1+ (Negative); URINE CLARITY CLEAR; URINE COLOR YELLOW; URINE GLUCOSE-RANDOM* NEGATIVE (Negative); URINE KETONES NEGATIVE (Negative); URINE LEUKOCYTES-REFLEX NEGATIVE (Negative); URINE NITRITE-REFLEX NEGATIVE (Negative); URINE PROTEIN (DIPSTICK) NEGATIVE (Negative); URINE UROBILINOGEN 0.2 E.U./dl (0.2-1.0)
[2019-06-10 18:46] LABS: CASTS None Seen /LPF (None Seen); SQUAMOUS 4-10 Moderate /LPF (0-3); URINE WBC-REFLEX 0-5 Rare /HPF (0-5)
[2019-06-10 18:47] LABS: BACTERIA-REFLEX 1-9 Few /HPF (None Seen); CRYSTALS None Seen /LPF (None Seen); URINE RBC 0-2 Rare /HPF (0-2)
[2019-06-10] MEDS ORDERED: NORCO 5-325 TA1 EAC1 PO (20:09)
[2019-06-10] MEDS ORDERED: KEFLEX500 M1 PO ×2 (20:24→20:26)
[2019-06-10] MEDS ORDERED: DIFLUCAN150 MG PO (20:25)
[2019-06-10 20:27] VITALS: BP 131/82
--- NOTE | 2019-06-11 08:26 | EKG ---
[address] [address] ELECTROCARDIOGRAM REPORT Name: GARRETT LARKIN [id number] Admission: 06/10/19 Attend Phys: Discharge: 06/10/19 Date of : 77 Report #: [id number] THIS REPORT FOR: //name// [facility] ED Test Date: 2019-06-10 Test Time: 15:39:04 Pat Name: GARRETT LARKIN Department: Room: Gender: F Layboy Operator: WG : 1975 Requested By: Emi Lee Order Number: [id number] MD: Sonido Brown Measurements Intervals [place] Rate: 94 P: 33 [place]: 144 QRS: 5 QRSD: 97 T: 4 QT: 367 QTc: 459 Interpretive Statements Sinus rhythm Compared to ECG 08/21/2018 19:33:10 Electronically Signed On 06-11-2019 8:26:07 SPACE CONTROL SUPERVISOR by Sonido Brown [email or web address] <ELECTRONICALLY SIGNED> By: Sonido Brown MD 06/11/19 0826 1539 1539 Sonido Brown MD /SYDNI
--- NOTE | 2019-06-11 08:34 | EKG ---
[address] [address] ELECTROCARDIOGRAM REPORT Name: GARRETT LARKIN ANABEL [facility] [id number] Admission: 06/10/19 Attend Phys: Discharge: 06/10/19 Date of : 77 Report #: [id number] THIS REPORT FOR: //name// [facility] ED Test Date: 2019-06-10 Test Time: 19:30:46 Pat Name: GARRETT LARKIN Department: Room: Gender: F Imagery Intelligence: ALFONZO : 1975 Requested By: Emi Lee Order Number: [id number] MD: Sonido Brown Measurements Intervals [place] Rate: 73 P: 20 [place]: 141 QRS: -1 QRSD: 102 T: 3 QT: 402 QTc: 443 Interpretive Statements Sinus rhythm Probable left ventricular hypertrophy Compared to ECG 08/21/2018 19:33:10 Sinus tachycardia no longer present T-wave abnormality no longer present Electronically Signed On 06-11-2019 8:33:44 DATA ENTRY EMAIL PROCESSOR by Sonido Brown [email or web address] <ELECTRONICALLY SIGNED> By: Sonido Brown MD 06/11/19 08 29 29 Sonido Brown MD /SYDNI
== END 2019-06-10 20:28 | disposition home or self-care (01) ==
LOC: ER 15:34
PROVIDERS: Physician Assistant
DX: R07.89 Other chest pain (principal); M79.662 Pain in left lower leg; M79.661 Pain in right lower leg; I10 Essential (primary) hypertension; F17.210 Nicotine dependence, cigarettes, uncomplicated; Z90.49 Acquired absence of other specified parts of digestive tract; Z98.890 Other specified postprocedural states; Z88.6 Allergy status to analgesic agent

== ENCOUNTER 2019-06-12 09:16 | Emergency (ER) | payer OTHER ==
[~2019-06-12] VITALS: Ht 165.1 cm; Wt 117.9 kg
[~2019-06-12 09:16] MED LIST changes: +NORCO 5-325 TA1 EAC1 PO
[2019-06-12] MEDS ORDERED: PEPCID20 MG PO (09:27)
[2019-06-12] MEDS ORDERED: SEROQUEL 25 MG25 M1 PO (09:27)
[2019-06-12] MEDS ORDERED: NORFLEX100 MG PO (11:07)
[2019-06-12] MEDS ORDERED: PREDNISONE 20 M20 MG PO (11:07)
[2019-06-12 11:24] VITALS: BP 128/64
--- NOTE | 2019-06-13 09:39 | EKG ---
[facility] [place] [address] ELECTROCARDIOGRAM REPORT Name: GARRETT LARKIN [id number] Admission: 06/12/19 Attend Phys: Discharge: 06/12/19 Date of : 77 Report #: [id number] THIS REPORT FOR: //name// [facility] ED Test Date: 2019-06-12 Test Time: 10:12:02 Pat Name: GARRETT LARKIN Department: Room: Gender: F Power Tool Repair Technician: BOONE : 1975 Requested By: Gage Bach Order Number: [id number] MD: Payam Whitt Measurements Intervals [place] Rate: 80 P: 25 ID: [id number] QRS: -3 QRSD: 104 T: 3 QT: 378 QTc: 436 Interpretive Statements Sinus rhythm RSR' in V1 or V2, right VCD Borderline T abnormalities, inferior leads Compared to ECG 06/10/2019 19:30:46 No significant change was found Electronically Signed On 06-13-2019 9:38:41 NUCLEAR CONTROL ROOM OPERATOR by Payam Whitt [email or web address] <ELECTRONICALLY SIGNED> By: Payam Whitt MD, [facility] 06/13/19 0938 1012 1012 Payam Whitt MD, [facility] /EPI
== END 2019-06-12 11:14 | disposition home or self-care (01) ==
LOC: ER 09:16
DX: R07.89 Other chest pain (principal); M43.6 Torticollis; J06.9 Acute upper respiratory infection, unspecified; I10 Essential (primary) hypertension; F17.210 Nicotine dependence, cigarettes, uncomplicated; Z88.6 Allergy status to analgesic agent; Z88.8 Allergy status to other drugs, medicaments and biological substances; Z79.899 Other long term (current) drug therapy; Z98.890 Other specified postprocedural states

== ENCOUNTER 2019-06-14 06:01 | Emergency (ER) | payer OTHER ==
[~2019-06-14] VITALS: Ht 165.1 cm; Wt 122.0 kg
[~2019-06-14 06:01] MED LIST changes: +PEPCID20 MG PO; +PREDNISONE 20 M20 MG PO; +SEROQUEL 25 MG25 M1 PO
[2019-06-14] MEDS ORDERED: TAMIFLU75 MG PO (08:31)
[2019-06-14 09:30] VITALS: BP 125/76
[2019-06-15] MEDS ORDERED: ZOFRAN ODT4 MG PO (10:39)
[2019-06-15] MEDS ORDERED: TORADOL 10 MG T10 MG PO (10:39)
== END 2019-06-14 09:59 | disposition home or self-care (01) ==
LOC: ER 06:01
DX: J10.1 Influenza due to other identified influenza virus with other respiratory manifestations (principal); I10 Essential (primary) hypertension; E66.9 Obesity, unspecified; D57.1 Sickle-cell disease without crisis; F17.210 Nicotine dependence, cigarettes, uncomplicated; Z68.41 Body mass index [BMI] 40.0-44.9, adult; Z90.49 Acquired absence of other specified parts of digestive tract; Z98.890 Other specified postprocedural states; Z88.6 Allergy status to analgesic agent; Z88.8 Allergy status to other drugs, medicaments and biological substances

== ENCOUNTER 2019-06-15 06:38 | Emergency (ER) | payer OTHER ==
[~2019-06-15] VITALS: Ht 165.1 cm; Wt 122.0 kg
[~2019-06-15 06:38] MED LIST changes: +TAMIFLU75 MG PO
[2019-06-15 08:01] LABS: HEMATOCRIT 33.6 % (37.0-47.0); HEMOGLOBIN 11.9 gm/dL (12.0-15.0); MCHC 35.6 g/dL (28.0-37.0); MCV 84.4 fL (80.0-100.0); OBSERVED RETIC COUNT 1.68 % (0.6-2.6); PLATELET COUNT 352 thou/uL (150-400); RBC 3.98 mil/uL (4.20-5.00); RDW 15.7 % (10.5-14.5); WBC 9.4 thou/uL (4.0-11.0)
[2019-06-15 08:06] LABS: CREATININE 0.9 mg/dL (0.6-1.0); POTASSIUM 3.5 mmol/L (3.5-5.1)
[2019-06-15 08:12] LABS: ALBUMIN 3.7 g/dL (3.4-5.0); DIRECT BILIRUBIN 0.3 mg/dL (<0.1-0.2); TOTAL BILIRUBIN 0.9 mg/dL (<0.1-1.0); TOTAL PROTEIN 7.8 g/dL (6.4-8.2)
[2019-06-15 09:28] LABS: ABSOLUTE NEUTROPHILS 6.8 thou/uL (1.4-8.2); NUCLEATED RBCS 1 /100WBC
[2019-06-15 09:40] LABS: ANISOCYTOSIS 1+; TARGET CELLS 1+
[2019-06-15] MEDS ORDERED: TORADOL 10 MG T10 MG PO (10:39)
[2019-06-15] MEDS ORDERED: ZOFRAN ODT4 MG PO (10:39)
[2019-06-15 10:52] VITALS: BP 110/78
== END 2019-06-15 10:54 | disposition home or self-care (01) ==
LOC: ER 06:38
PROVIDERS: Emergency Medicine
DX: D57.1 Sickle-cell disease without crisis (principal); J10.1 Influenza due to other identified influenza virus with other respiratory manifestations; R11.10 Vomiting, unspecified; I10 Essential (primary) hypertension; E66.9 Obesity, unspecified; F17.210 Nicotine dependence, cigarettes, uncomplicated; Z68.41 Body mass index [BMI] 40.0-44.9, adult; Z90.49 Acquired absence of other specified parts of digestive tract; Z98.890 Other specified postprocedural states; Z88.6 Allergy status to analgesic agent; Z88.8 Allergy status to other drugs, medicaments and biological substances

== ENCOUNTER 2019-07-27 07:50 | Emergency (ER) | payer OTHER ==
[~2019-07-27] VITALS: Ht 165.1 cm; Wt 120.2 kg
[~2019-07-27 07:50] MED LIST changes: +TORADOL 10 MG T10 MG PO
[2019-07-27 08:04] VITALS: BP 123/84
[2019-07-27] MEDS ORDERED: NORFLEX100 MG PO (08:15)
[2019-07-27] MEDS ORDERED: PERCOCET 10-321 EAC1 PO (08:20)
== END 2019-07-27 08:38 | disposition home or self-care (01) ==
LOC: ER 07:50
DX: M43.6 Torticollis (principal); I10 Essential (primary) hypertension; D57.1 Sickle-cell disease without crisis; F17.210 Nicotine dependence, cigarettes, uncomplicated; Z90.49 Acquired absence of other specified parts of digestive tract; Z98.890 Other specified postprocedural states; Z88.6 Allergy status to analgesic agent

== ENCOUNTER 2019-08-25 15:40 | Emergency (ER) | payer OTHER ==
[~2019-08-25] VITALS: Ht 165.1 cm; Wt 120.2 kg
[~2019-08-25 15:40] MED LIST changes: +PERCOCET 10-321 EAC1 PO
[2019-08-25 17:59] LABS: URINE BILIRUBIN NEGATIVE (Negative); URINE BLOOD NEGATIVE (Negative); URINE CLARITY CLEAR; URINE COLOR YELLOW; URINE GLUCOSE-RANDOM* NEGATIVE (Negative); URINE KETONES NEGATIVE (Negative); URINE LEUKOCYTES-REFLEX NEGATIVE (Negative); URINE NITRITE-REFLEX NEGATIVE (Negative); URINE PROTEIN (DIPSTICK) NEGATIVE (Negative); URINE SPECIFIC GRAVITY 1.015 (1.005-1.035)
[2019-08-25 17:59] LABS: ABSOLUTE NEUTROPHILS 6.8 thou/uL (1.4-8.2); BASOPHILS 1.4 % (0.0-2.0); EOSINOPHILS 0.7 % (0.0-3.0); HEMOGLOBIN 12.2 gm/dL (12.0-15.0); LYMPHOCYTES 37.5 % (24.0-44.0); MCH 30.2 pg (26.0-34.0); MCHC 34.9 g/dL (28.0-37.0); MCV 86.7 fL (80.0-100.0); MONOCYTES 9.1 % (1.0-8.0); PLATELET COUNT 385 thou/uL (150-400); POLYS 51.3 % (36.0-66.0); RBC 4.03 mil/uL (4.20-5.00); WBC 13.2 thou/uL (4.0-11.0)
[2019-08-25 18:03] LABS: ABSOLUTE RETIC COUNT 0.0935 10^6/uL; OBSERVED RETIC COUNT 2.34 % (0.6-2.6)
[2019-08-25 18:17] LABS: CALCIUM 9.1 mg/dL (8.5-10.1); CREATININE 0.8 mg/dL (0.6-1.0); POTASSIUM 3.7 mmol/L (3.5-5.1)
[2019-08-25 18:22] LABS: ALBUMIN 3.7 g/dL (3.4-5.0); TOTAL BILIRUBIN 1.3 mg/dL (<0.1-1.0); TOTAL PROTEIN 7.2 g/dL (6.4-8.2)
[2019-08-25 20:13] VITALS: BP 112/72
== END 2019-08-25 20:15 | disposition home or self-care (01) ==
LOC: ER 15:40
PROVIDERS: Physician Assistant
DX: D57.00 Hb-SS disease with crisis, unspecified (principal); I10 Essential (primary) hypertension; F17.210 Nicotine dependence, cigarettes, uncomplicated; Z90.49 Acquired absence of other specified parts of digestive tract; Z98.890 Other specified postprocedural states; Z88.6 Allergy status to analgesic agent

== ENCOUNTER 2019-08-26 13:07 | Inpatient (IN) | payer OTHER ==
[~2019-08-26] VITALS: Ht 165.1 cm; Wt 120.2 kg
[2019-08-26 13:10] VITALS: BP 132/87
[2019-08-26 16:07] LABS: ABSOLUTE RETIC COUNT 0.0955 10^6/uL; OBSERVED RETIC COUNT 2.4 % (0.6-2.6)
[2019-08-26 16:11] LABS: CALCIUM 8.6 mg/dL (8.5-10.1); CREATININE 0.9 mg/dL (0.6-1.0)
[2019-08-26 16:13] LABS: HEMATOCRIT 34.6 % (37.0-47.0); MCH 30.1 pg (26.0-34.0); MCHC 34.6 g/dL (28.0-37.0); PLATELET COUNT 376 thou/uL (150-400); RBC 3.98 mil/uL (4.20-5.00); RDW 16.1 % (10.5-14.5); WBC 12.5 thou/uL (4.0-11.0)
[2019-08-26 16:36] LABS: ANISOCYTOSIS 1+; METAMYELOCYTES 1 %; SCHISTOCYTES 1+; TARGET CELLS 2+
[2019-08-26 16:37] LABS: ABSOLUTE NEUTROPHILS 7.3 thou/uL (1.4-8.2)
[2019-08-26 16:38] LABS: PLATELET ESTIMATE NORMAL
[2019-08-26 18:04] VITALS: BP 119/58
[2019-08-26 18:20] VITALS: BP 114/60
[2019-08-26 18:33] LABS: ALBUMIN 3.7 g/dL (3.4-5.0); DIRECT BILIRUBIN 0.2 mg/dL (<0.1-0.2); TOTAL BILIRUBIN 0.9 mg/dL (<0.1-1.0); TOTAL PROTEIN 7.2 g/dL (6.4-8.2)
[2019-08-26 19:22] VITALS: BP 106/77
--- NOTE | 2019-08-27 03:34 | NUR ---
ASSUMED CARE OF PT AT 1900HRS. PT IS AOX4 AND LETS NEEDS BE KNOWN. PT IS UP AD RUBÉN. PT WAS ORIENTED TO THE UNIT AND HER ROOM. PT WAS ABLE TO ANSWER ALL ADMISSION RELATED QUESTIONS. PT IS IN PAIN AND PRN PAIN MEDS WERE USED WITH LITTLE SUCCESS. PT STATES THAT DILAUDID IS MOST EFFECTIVE FOR HER. PT WAS ABLE TO GET COMFORTABLE AND SLEEP PART OF THE SHIFT. VSS AND NO OTHER S/S OF ACUTE DISTRESS. WILL CONTINUE TO MONITOR.
[2019-08-27 06:15] LABS: ABSOLUTE NEUTROPHILS 4.3 thou/uL (1.4-8.2); BASOPHILS 2.3 % (0.0-2.0); EOSINOPHILS 2.2 % (0.0-3.0); HEMATOCRIT 32.4 % (37.0-47.0); HEMOGLOBIN 11.3 gm/dL (12.0-15.0); LYMPHOCYTES 41.5 % (24.0-44.0); MCH 30.5 pg (26.0-34.0); MCHC 34.9 g/dL (28.0-37.0); MCV 87.4 fL (80.0-100.0); MONOCYTES 10.1 % (1.0-8.0); PLATELET COUNT 333 thou/uL (150-400); POLYS 43.9 % (36.0-66.0); RBC 3.71 mil/uL (4.20-5.00); RDW 15.8 % (10.5-14.5); WBC 9.9 thou/uL (4.0-11.0)
[2019-08-27 06:25] LABS: ABSOLUTE RETIC COUNT 0.1033 10^6/uL; OBSERVED RETIC COUNT 2.76 % (0.6-2.6)
[2019-08-27 06:31] LABS: CALCIUM 8.3 mg/dL (8.5-10.1); CREATININE 0.8 mg/dL (0.6-1.0); MAGNESIUM 1.9 mg/dL (1.8-2.4); POTASSIUM 4.3 mmol/L (3.5-5.1)
[2019-08-27 08:19] VITALS: BP 127/84
--- NOTE | 2019-08-27 09:28 | NUR ---
ASSUMED PT CARE AT 7AM.PT WAS UPSET DUE TO LACK OF IV SITE FOR PAIN SHOT.NOC RN REPORTED THAT HE WAS UNABLE TO RESTART PIV.PO PAIN MED GIVEN.PT HAS BEEN UPSET MOST OF THE NIGHT BECAUSE PROCESSOR HELPER UNABLE TO ORDER DILAUDID IVP WHICH PT PREFERED TO MORPHINE SULFATE.DR CABA NOTIFIED.MID LINE ORDERED. IV TEAM CALLED AND MESSAGE LEFT.PT UPDATED BUT STILL ANGRY.WILL CALL IV TEAM AGAIN.PT IN ROOM EATING BREAKFAST.WILL CONTINUE TO MONITOR.
--- NOTE | 2019-08-27 10:20 | NUR ---
VASCULAR ACCESS CONSULTED FOR MIDLINE. PT'S LABS,MEDS,HISTORY REVIEWED. DISCUSSED BENEFITS AND RISK OF ML,PT VERBALIZED UNDERSTANDING AND CONSENT FOR MIDLINE. VENKATA BASILIC WAS WIDELY PATENT WITH USG. 4FR POWER MIDLINE TRIMMED TO 12CM INSERTED TO 0CM WITH BRISK BR. PT TOLERATED WELL. ML RELEASED FOR IMMEDIATE USE JOHNATHAN VALENZUELA RN PER PROTOCOL
--- NOTE | 2019-08-27 10:32 | NUR ---
CHART REVIEWED. Pt UP AD RUBÉN AND REFUSES P.T. AT THIS TIME SHE STATES THAT SHE HAS NO CONCERNS WITH MOBILITY. AMBULATING SAFELY.
[2019-08-27 20:22] VITALS: BP 132/86
[2019-08-28 03:00] VITALS: BP 134/98
--- NOTE | 2019-08-28 03:27 | NUR ---
pain controlled this shift. patient c/o insomnia called crnp new order of melatonin. patient in bed asleep at this time breathing regular and unlaboured.
[2019-08-28 06:32] LABS: HEMATOCRIT 29.9 % (37.0-47.0); HEMOGLOBIN 10.5 gm/dL (12.0-15.0); MCH 30.4 pg (26.0-34.0); MCHC 35.1 g/dL (28.0-37.0); MCV 86.7 fL (80.0-100.0); OBSERVED RETIC COUNT 2.57 % (0.6-2.6); RBC 3.45 mil/uL (4.20-5.00); RDW 16.1 % (10.5-14.5); WBC 11.4 thou/uL (4.0-11.0)
--- NOTE | 2019-08-28 08:11 | HC ---
[facility] [place] [address] CONSULTATION Name: GARRETT LARKIN Room #: 462-P ADM IN M.R.#: [id number] Admission: 08/26/19 Attend Phys: Marcos Gonzales MD Discharge: Date of : 77 Report #: [id number] THIS REPORT FOR: cc: Mainor Shore MD, Keninde A. MD McKittrick, Richard James MD ~ CC: Gaetano Fulton MD REQUESTING PHYSICIAN: Marcos Gonzales MD REASON FOR CONSULT: Sickle cell crisis. 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 Denies any fevers, chills, maybe a little bit of queasiness, no vomiting, no blood in urine or stool. No diarrhea, no constipation. No new arm or leg swelling. No sick family members recently. PAST HISTORY: Notable for the history of the hemoglobin S-C, by her description poor tolerance of hydroxyurea. Has never tried Endari which is L-glutamine powder, which would be an option. Also, history of an autosplenectomy and also history of a cholecystectomy. Also, breast reduction in the past and also a . FAMILY HISTORY: She tells me that a nephew has hemoglobin SS. I think 1 of her daughters has trait. 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 Does smoke tobacco and marijuana, which she has been told several times that she should not do. PHYSICAL EXAMINATION: GENERAL: The patient appears her stated age. She is alert and oriented x 3. VITAL SIGNS: Height is 5 feet 5 inches, 165 cm, 265 pounds, 120 kilograms. Blood pressure is 127/84, O2 sat 99%, pulse 65, respirations 18, afebrile. MOOD: She is pleasant, conversant. LUNGS: Clear. No rhonchi, symmetric, unlabored. HEART: Regular rate. LYMPHATICS: No enlarged lymph nodes in the supraclavicular, cervical, axillary region. The patient has some tenderness, more in the muscles I think, maybe consistent with her fibromyalgia in the neck area. ABDOMEN: Obese. No masses. EXTREMITIES: Without clubbing, cyanosis. No edema. [facility] [address] [place] [address] CONSULTATION Name: GARRETT LARKIN Room #: [facility].#: [id number] Admission: 08/26/19 Attend Phys: Marcos Gonzales MD Discharge: Date of : 77 Report #: [id number] LABORATORY DATA: Lab review here shows that she never really has much of an elevated bilirubin or absolute retic count. BUN is 11, creatinine is 0.8. Transaminases are normal. Total bili is 0.9, was 1.3 on admission. She has never been over about 1.5 looking over the last several years. Alk phos 129, LDH 189, which is usual, which she has measured in several other times when tested in the past. White blood count 9.9 down from 13.2, hemoglobin 11.3, which is about baseline for her. MCV 87.4, platelets 333. Does have 1 metamyelocyte on her differential from yesterday. Platelets are described as large. Does have some target cell and schistocytes. Absolute reticulocyte count on admission was 0.093, today it is 0.103. She has been a size 0.144 in the past, but never has a really high reticulocytosis. IMAGING: None at this time. ASSESSMENT AND PLAN: 1. Hemoglobin S-C. Per the patient did not tolerate Hydrea, could consider Endari 10-g packets b.i.d. as an outpatient. I would prefer that she follows with a doctor that is heme trained to better serve her. She could also consider the [facility] at [facility]. At this time, no need for transfusions. 2. Sickle crisis. Never had much of an elevated bilirubin or reticulocyte count. Continue supportive care with pain medications, fluids, and oxygen as needed. 3. Fibromyalgia. No specific medicines. Wonder if she might benefit from a Cymbalta or Neurontin. 4. Tobaccoism, should quit smoking. 5. Health maintenance, should check with her family doctor to see if she is up to date on vaccinations and health maintenance. <ELECTRONICALLY SIGNED> By: Irvin Rowell MD 08/28/19 0811 0926 1004 Irvin Rowell MD /nt
[2019-08-28 09:20] VITALS: BP 125/77
[2019-08-28 17:16] VITALS: BP 113/78
--- NOTE | 2019-08-28 19:31 | NUR ---
Assumed pt care this am, pt is up ad saji and able to ambulate the halls. Pain is maanged with medication and pt prefers to have IV vs PO of benadryl for this itching and had mentioned she has stated this to the MD. POC followed, no signs and verbalizations of distress noted. Endorsed to the night nurse.
--- NOTE | 2019-08-29 07:33 | NUR ---
progress pt reports pain to bones in arms legs chest hips taking hydromorphone and oxycodone with some effect. taking 25 mg iv benedryl for itching related to latex allergies and iv pain meds. did not sleep last night. up ambulating in [place] and room. Pt contacted her pain management physicians office and requested that they contact to discuss home pain managment that will not interfere or corrupt her pain management contract. continue to monitor.
[2019-08-29 07:50] VITALS: BP 123/71
[2019-08-29] MEDS ORDERED: OXYCODONE HCL10 MG PO (12:59)
[2019-08-29] MEDS ORDERED: MELATONIN5 M1 PO (12:59)
[2019-08-29] MEDS ORDERED: FLUCONAZOLE 10100 MG PO (12:59)
[2019-08-29] MEDS ORDERED: ACETAMINOPHEN325 M1 PO (12:59)
[2019-08-29] MEDS ORDERED: ENDARI5 GM PO (12:59)
[2019-08-29 13:13] VITALS: BP 123/71
--- NOTE | 2019-08-29 13:35 | NUR ---
Assumed pt casre this am, vs stable. Pt is ambulating the halls. Wants pain meds round the clock and benadryl IV. Pt states partial relief only. Seen by Dr. Gonzales, IRLANDA instructions and prescriptions given. Pain medications given with the knowledge and approval of the Dr. Lemus from [facility] with [facility] the pt has a contract, medication amount is just for the weekend since pt will be seeing Dr Lemus on Saturday. POC followd no signs or verbalizations of distress noted. IV removed. Pt is now DC.
== END 2019-08-29 13:39 | disposition home or self-care (01) | DRG 812 ==
LOC: ER 13:07 → EROBS 17:01 → 4W 17:01 → EROBS 18:25 → 4W 18:44
PROVIDERS: Emergency Medicine; ADMIT Internal Medicine
DX: D57.00 Hb-SS disease with crisis, unspecified (principal); Z68.41 Body mass index [BMI] 40.0-44.9, adult; F11.20 Opioid dependence, uncomplicated; F17.210 Nicotine dependence, cigarettes, uncomplicated; M79.7 Fibromyalgia; G89.4 Chronic pain syndrome; E66.01 Morbid (severe) obesity due to excess calories; B37.9 Candidiasis, unspecified; G47.00 Insomnia, unspecified; I10 Essential (primary) hypertension; R16.0 Hepatomegaly, not elsewhere classified; Z79.2 Long term (current) use of antibiotics; Z88.5 Allergy status to narcotic agent; Z79.899 Other long term (current) drug therapy; Z82.49 Family history of ischemic heart disease and other diseases of the circulatory system; Z80.3 Family history of malignant neoplasm of breast; Z90.81 Acquired absence of spleen; Z90.49 Acquired absence of other specified parts of digestive tract
CPT/HCPCS: 10040; 27000

== ENCOUNTER 2019-09-01 04:07 | Emergency (ER) | payer OTHER ==
[~2019-09-01] VITALS: Ht 165.1 cm; Wt 120.2 kg
[~2019-09-01 04:07] MED LIST changes: +ACETAMINOPHEN325 M1 PO; +ENDARI5 GM PO; +FLUCONAZOLE 10100 MG PO; +MELATONIN5 M1 PO
[2019-09-01] MEDS ORDERED: ELIQUIS5 M1 PO (06:00)
[2019-09-01 06:18] VITALS: BP 132/82
== END 2019-09-01 06:19 | disposition home or self-care (01) ==
LOC: ER 04:07
DX: I82.621 Acute embolism and thrombosis of deep veins of right upper extremity (principal); I10 Essential (primary) hypertension; F17.210 Nicotine dependence, cigarettes, uncomplicated; Z90.49 Acquired absence of other specified parts of digestive tract; Z79.899 Other long term (current) drug therapy; Z88.8 Allergy status to other drugs, medicaments and biological substances; Z91.040 Latex allergy status

== ENCOUNTER 2020-02-21 14:09 | Emergency (ER) | payer OTHER ==
[~2020-02-21] VITALS: Ht 165.1 cm; Wt 120.2 kg
[~2020-02-21 14:09] MED LIST changes: +ELIQUIS5 M1 PO
[2020-02-21 14:54] LABS: URINE BILIRUBIN NEGATIVE (Negative); URINE BLOOD NEGATIVE (Negative); URINE CLARITY CLEAR; URINE COLOR YELLOW; URINE GLUCOSE-RANDOM* NEGATIVE (Negative); URINE KETONES NEGATIVE (Negative); URINE LEUKOCYTES-REFLEX NEGATIVE (Negative); URINE NITRITE-REFLEX NEGATIVE (Negative); URINE PROTEIN (DIPSTICK) NEGATIVE (Negative); URINE SPECIFIC GRAVITY 1.015 (1.005-1.035); URINE UROBILINOGEN 0.2 E.U./dl (0.2-1.0)
[2020-02-21 15:01] LABS: HEMATOCRIT 33.3 % (37.0-47.0); HEMOGLOBIN 12.1 gm/dL (12.0-15.0); MCHC 36.2 g/dL (28.0-37.0); MCV 85.7 fL (80.0-100.0); PLATELET COUNT 365 thou/uL (150-400); RBC 3.89 mil/uL (4.20-5.00); WBC 18.2 thou/uL (4.0-11.0)
[2020-02-21 15:22] LABS: CALCIUM 8.8 mg/dL (8.5-10.1); POTASSIUM 4.2 mmol/L (3.5-5.1)
[2020-02-21 15:27] LABS: ALBUMIN 3.9 g/dL (3.4-5.0); TOTAL BILIRUBIN 0.9 mg/dL (0.2-1.0); TOTAL PROTEIN 7.5 g/dL (6.4-8.2)
[2020-02-21 15:53] LABS: NUCLEATED RBCS 4 /100WBC
[2020-02-21 15:54] LABS: ANISOCYTOSIS 1+; TARGET CELLS 1+
[2020-02-21 17:44] VITALS: BP 147/87
== END 2020-02-21 18:47 | disposition home or self-care (01) ==
LOC: ER 14:09
PROVIDERS: Nurse Practitioner
DX: U07.1 COVID-19 (principal); D57.1 Sickle-cell disease without crisis; M79.10 Myalgia, unspecified site; R10.9 Unspecified abdominal pain; M54.5 Low back pain; M79.605 Pain in left leg; M25.50 Pain in unspecified joint; I10 Essential (primary) hypertension; F17.210 Nicotine dependence, cigarettes, uncomplicated; Z79.899 Other long term (current) drug therapy; Z88.8 Allergy status to other drugs, medicaments and biological substances; Z91.040 Latex allergy status

== ENCOUNTER 2020-03-12 19:14 | Emergency (ER) | payer OTHER ==
[~2020-03-12] VITALS: Ht 165.1 cm; Wt 108.9 kg
[2020-03-12] MEDS ORDERED: DILAUDID4 MG PO (19:36)
[2020-03-12] MEDS ORDERED: VITAMIN D31250 MCG PO (20:14)
[2020-03-12] MEDS ORDERED: ALPRAZOLAM ER1 MG PO (20:24)
[2020-03-12] MEDS ORDERED: DEPO-PROVER150 MG/M1 IM (20:25)
[2020-03-12] MEDS ORDERED: NORVASC 2.5 MG2.5 M1 PO (20:26)
[2020-03-12 22:35] VITALS: BP 166/96
== END 2020-03-12 22:37 | disposition home or self-care (01) ==
LOC: ER 19:14
DX: D57.00 Hb-SS disease with crisis, unspecified (principal); M79.7 Fibromyalgia; Z86.718 Personal history of other venous thrombosis and embolism; I10 Essential (primary) hypertension; F17.210 Nicotine dependence, cigarettes, uncomplicated; Z79.899 Other long term (current) drug therapy; Z88.8 Allergy status to other drugs, medicaments and biological substances; Z91.040 Latex allergy status

== ENCOUNTER 2020-04-28 21:07 | Emergency (ER) | payer OTHER ==
[~2020-04-28] VITALS: Ht 165.1 cm; Wt 113.0 kg
[~2020-04-28 21:07] MED LIST changes: +ALPRAZOLAM ER1 MG PO; +DEPO-PROVER150 MG/M1 IM; +DILAUDID4 MG PO; +VITAMIN D31250 MCG PO
[2020-04-28 23:55] VITALS: BP 142/86
== END 2020-04-28 23:56 | disposition home or self-care (01) ==
LOC: ER 21:07
DX: D57.00 Hb-SS disease with crisis, unspecified (principal); I10 Essential (primary) hypertension; F17.210 Nicotine dependence, cigarettes, uncomplicated; Z79.899 Other long term (current) drug therapy; Z79.2 Long term (current) use of antibiotics; Z88.8 Allergy status to other drugs, medicaments and biological substances; Z91.040 Latex allergy status

== ENCOUNTER → 2020-06-09 | Emergency (ER) | payer OTHER ==
[2020-06-09 19:45] VITALS: BP 153/100
--- NOTE | 2020-06-10 15:57 | EKG ---
[facility] [address] [place] [address] ELECTROCARDIOGRAM REPORT Name: GARRETT LARKIN Room #: REG ANTONIA Aggarwal#: [id number] Admission: 06/09/20 Attend Phys: Discharge: Date of : 77 Report #: [id number] <ELECTRONICALLY SIGNED> By: Bjorn Buchanan MD, FACC 06/10/20 1557 [id number] [id number] Bjorn Buchanan MD, FACC /EPI
== END ==
LOC: ER 18:18
DX: R07.89 Other chest pain (principal); Z53.21 Procedure and treatment not carried out due to patient leaving prior to being seen by health care provider

== ENCOUNTER 2020-07-14 13:35 | Emergency (ER) | payer OTHER ==
[~2020-07-14] VITALS: Ht 165.1 cm; Wt 108.4 kg
[2020-07-14 15:12] LABS: ABSOLUTE NEUTROPHILS 5.8 thou/uL (1.4-8.2); BASOPHILS 0.4 % (0.0-2.0); EOSINOPHILS 0.7 % (0.0-3.0); HEMATOCRIT 35.6 % (37.0-47.0); HEMOGLOBIN 12.5 gm/dL (12.0-15.0); LYMPHOCYTES 33.6 % (24.0-44.0); MCH 30.7 pg (26.0-34.0); MCHC 35.2 g/dL (28.0-37.0); MCV 87.1 fL (80.0-100.0); MONOCYTES 8.9 % (1.0-8.0); PLATELET COUNT 321 thou/uL (150-400); POLYS 56.4 % (36.0-66.0); RBC 4.08 mil/uL (4.20-5.00); RDW 16.1 % (10.5-14.5); WBC 10.3 thou/uL (4.0-11.0)
[2020-07-14 15:12] LABS: URINE BILIRUBIN NEGATIVE (Negative); URINE BLOOD NEGATIVE (Negative); URINE CLARITY CLEAR; URINE COLOR YELLOW; URINE GLUCOSE-RANDOM* NEGATIVE (Negative); URINE KETONES NEGATIVE (Negative); URINE LEUKOCYTES-REFLEX NEGATIVE (Negative); URINE NITRITE-REFLEX NEGATIVE (Negative); URINE PROTEIN (DIPSTICK) NEGATIVE (Negative); URINE UROBILINOGEN 0.2 E.U./dl (0.2-1.0)
[2020-07-14 15:24] LABS: CALCIUM 9.5 mg/dL (8.5-10.1); CREATININE 0.9 mg/dL (0.6-1.0)
[2020-07-14 15:27] LABS: ALBUMIN 4.2 g/dL (3.4-5.0); TOTAL BILIRUBIN 1.3 mg/dL (0.2-1.0); TOTAL PROTEIN 7.7 g/dL (6.4-8.2)
[2020-07-14 15:39] LABS: ABSOLUTE RETIC COUNT 0.1 10^6/uL; OBSERVED RETIC COUNT 2.47 % (0.6-2.6)
[2020-07-14] MEDS ORDERED: REGLAN 10 MG TA10 MG PO (17:41)
[2020-07-14 18:06] VITALS: BP 161/94
== END 2020-07-14 18:06 | disposition home or self-care (01) ==
LOC: ER 13:35
PROVIDERS: Emergency Medicine
DX: D57.219 Sickle-cell/Hb-C disease with crisis, unspecified (principal); F17.210 Nicotine dependence, cigarettes, uncomplicated; F12.90 Cannabis use, unspecified, uncomplicated; I10 Essential (primary) hypertension; Z88.6 Allergy status to analgesic agent; Z91.040 Latex allergy status; Z88.8 Allergy status to other drugs, medicaments and biological substances; Z79.899 Other long term (current) drug therapy; Z98.890 Other specified postprocedural states

== ENCOUNTER 2020-08-11 08:40 | Emergency (ER) | payer OTHER ==
[~2020-08-11] VITALS: Ht 165.1 cm; Wt 108.4 kg
[~2020-08-11 08:40] MED LIST changes: +REGLAN 10 MG TA10 MG PO
[2020-08-11 09:26] LABS: URINE BILIRUBIN NEGATIVE (Negative); URINE BLOOD NEGATIVE (Negative); URINE CLARITY CLEAR; URINE COLOR YELLOW; URINE GLUCOSE-RANDOM* NEGATIVE (Negative); URINE KETONES NEGATIVE (Negative); URINE LEUKOCYTES-REFLEX TRACE (Negative); URINE NITRITE-REFLEX NEGATIVE (Negative); URINE PROTEIN (DIPSTICK) NEGATIVE (Negative); URINE UROBILINOGEN 0.2 E.U./dl (0.2-1.0)
[2020-08-11 09:27] VITALS: BP 133/68
[2020-08-11 09:32] LABS: ABSOLUTE NEUTROPHILS 6.2 thou/uL (1.4-8.2); BASOPHILS 1.4 % (0.0-2.0); EOSINOPHILS 1.2 % (0.0-3.0); HEMATOCRIT 35.3 % (37.0-47.0); HEMOGLOBIN 12.1 gm/dL (12.0-15.0); LYMPHOCYTES 26.9 % (24.0-44.0); MCH 30.2 pg (26.0-34.0); MCHC 34.4 g/dL (28.0-37.0); MCV 87.7 fL (80.0-100.0); MONOCYTES 7.7 % (1.0-8.0); PLATELET COUNT 363 thou/uL (150-400); POLYS 62.8 % (36.0-66.0); RBC 4.02 mil/uL (4.20-5.00); RDW 16.2 % (10.5-14.5); WBC 9.8 thou/uL (4.0-11.0)
[2020-08-11 09:40] LABS: CALCIUM 8.8 mg/dL (8.5-10.1); CREATININE 0.9 mg/dL (0.6-1.0); POTASSIUM 3.6 mmol/L (3.5-5.1)
[2020-08-11 09:42] LABS: ABSOLUTE RETIC COUNT 0.1033 10^6/uL; OBSERVED RETIC COUNT 2.57 % (0.6-2.6)
[2020-08-11 09:46] LABS: ALBUMIN 3.8 g/dL (3.4-5.0); TOTAL BILIRUBIN 1.2 mg/dL (0.2-1.0); TOTAL PROTEIN 7.3 g/dL (6.4-8.2)
== END 2020-08-11 10:02 | disposition home or self-care (01) ==
LOC: ER 08:40
PROVIDERS: Emergency Medicine
DX: D57.819 Other sickle-cell disorders with crisis, unspecified (principal); I10 Essential (primary) hypertension; F17.210 Nicotine dependence, cigarettes, uncomplicated; Z88.6 Allergy status to analgesic agent; Z91.040 Latex allergy status; Z79.899 Other long term (current) drug therapy; Z98.890 Other specified postprocedural states